=== PATIENT | male | born 1940 | race Caucasian/White ===

== ENCOUNTER → 2016-08-26 | Outpatient (CLI) | payer OTHER, MEDICARE ==
[~2016-08-26] MED LIST: ASPI1TAB PO; B12 INJECTION INJ; CYAN1000VL IM; EC-N500T OR; NAPR375T2 PO; OMAC1CA PO; OMEP20CA3 PO; PRAV40TA PO; PRAV40TA2 PO; SIMV40TA2 OR
[2016-08-26 17:40] LABS: ALBUMIN 3.8 GM/DL (3.2-5.2); ALBUMIN/GLOBULIN RATIO 1.27 (1.00-1.93); ALKALINE PHOSPHATASE 95 U/L (45-117); ALT/SGPT 21 U/L (12-78); ANION GAP 9 MEQ/L (8-16); AST/SGOT 19 U/L (15-37); BILIRUBIN,TOTAL 0.5 MG/DL (0.2-1.0); BLOOD UREA NITROGEN 12 MG/DL (7-18); CALCIUM LEVEL 8.6 MG/DL (8.8-10.2); CARBON DIOXIDE LEVEL 26 MEQ/L (21-32); CHLORIDE LEVEL 107 MEQ/L (98-107); CREATININE FOR GFR 1.18 MG/DL (0.70-1.30); FERRITIN 51 NG/ML (26-388); GLOMERULAR FILTRATION RATE > 60.0 (>42); GLUCOSE, FASTING 117 MG/DL (83-110); PERCENT SATURATION 26.2 % (19.7-37.4); POTASSIUM SERUM 4.7 MEQ/L (3.5-5.1); SODIUM LEVEL 142 MEQ/L (136-145); TOTAL IRON BINDING CAPACITY 385 UG/DL (250-450); TOTAL PROTEIN 6.8 GM/DL (6.4-8.2)
[2016-08-26 17:43] LABS: VITAMIN B12 LEVEL 1132 PG/ML (247-911)
[2016-08-26 18:03] LABS: MEAN CORPUSCULAR HEMOGLOBIN 33.7 pg (27.0-33.0); MEAN CORPUSCULAR HGB CONC 33.4 g/dl (32.0-36.5); MEAN CORPUSCULAR VOLUME 100.9 fl (80.0-96.0); WHITE BLOOD COUNT 7.1 K/mm3 (4.0-10.0)
[2016-08-28 14:51] LABS: FOLATE > 24.0 NG/ML (>5.4)
== END ==
LOC: M WUC 13:36
PROVIDERS: ATTEND Internal Medicine
DX: E78.00 Pure hypercholesterolemia, unspecified (principal); D64.9 Anemia, unspecified

== ENCOUNTER → 2016-09-29 | Outpatient (CLI) | payer OTHER, MEDICARE | LOC: M WUC 08:30 | PROVIDERS: ATTEND Nurse Practitioner Family | DX: I10 Essential (primary) hypertension (principal); I25.10 Atherosclerotic heart disease of native coronary artery without angina pectoris ==

== ENCOUNTER → 2016-11-10 | Outpatient (CLI) | payer OTHER | LOC: M WUC 08:13 | PROVIDERS: ATTEND Nurse Practitioner Family | DX: E78.5 Hyperlipidemia, unspecified (principal); I10 Essential (primary) hypertension ==

== ENCOUNTER → 2016-12-02 | Outpatient (CLI) | payer OTHER ==
--- NOTE | 2016-12-02 15:27 | REP ---
LUMBAR SPINE, FIVE VIEWS: HISTORY: Back pain. There is no acute fracture or subluxation. There is an old fracture of the L4 vertebral body with minimal height loss. The intervertebral discs are decreased in height consistent with disc degeneration. Osteophytes are present throughout the lumbar spine. There is narrowing of the L4-5 and L5-S1 facet joints. IMPRESSION: Degenerative change as described above. Signed by Gonzalo Macedo MD 12/02/2016 03:30 P
== END ==
LOC: M WUC 14:11
PROVIDERS: ATTEND Nurse Practitioner Family
DX: M54.5 Low back pain (principal); M51.86 Other intervertebral disc disorders, lumbar region; M25.78 Osteophyte, vertebrae

== ENCOUNTER → 2017-03-09 | Outpatient (CLI) | payer OTHER ==
[~2017-03-09] MED LIST changes: +NAPR-855 PO; -NAPR375T2 PO
== END ==
LOC: M WUC 08:36
PROVIDERS: ATTEND Nurse Practitioner Family
DX: E78.5 Hyperlipidemia, unspecified (principal)

== ENCOUNTER → 2017-03-24 | Outpatient (REF) | payer OTHER | LOC: M LAB REF 17:42 | PROVIDERS: ATTEND Surgery | DX: C44.319 Basal cell carcinoma of skin of other parts of face (principal) ==

== ENCOUNTER → 2017-07-27 | Outpatient (CLI) | payer OTHER ==
[2017-07-27 12:50] LABS: BASO # 0.1 10^3/uL (0.0-0.2); BASO % 1.1 % (0.0-1.0); EOS # 0.2 10^3/uL (0.0-0.50); EOS % 3.1 % (0.0-3.0); HEMATOCRIT 42.2 % (42.0-52.0); HEMOGLOBIN 13.7 g/dl (14.0-18.0); IMMATURE GRANULOCYTE % 0.6 % (0-0); LYMPH # 1.6 10^3/uL (1.5-4.5); LYMPH % 24.9 % (24.0-44.0); MEAN CORPUSCULAR HEMOGLOBIN 31.2 pg (27.0-33.0); MEAN CORPUSCULAR HGB CONC 32.5 g/dl (32.0-36.5); MEAN CORPUSCULAR VOLUME 96.1 fl (80.0-96.0); MONO # 0.6 10^3/uL (0.0-0.8); NEUTROPHILS # 3.9 10^3/uL (1.8-7.7); NEUTROPHILS % 61.3 % (36.0-66.0); PLATELET COUNT, AUTOMATED 306 10^3/uL (150-450); RED BLOOD COUNT 4.39 10^6/uL (4.30-6.10); RED CELL DISTRIBUTION WIDTH 12.9 % (11.5-14.5); WHITE BLOOD COUNT 6.4 10^3/uL (4.0-10.0)
[2017-07-27 13:08] LABS: ESTIMATED AVERAGE GLUCOSE 120 MG/DL (60-110); HEMOGLOBIN A1c 5.8 %
[2017-07-27 13:14] LABS: ALBUMIN 3.8 GM/DL (3.2-5.2); ALBUMIN/GLOBULIN RATIO 1.12 (1.00-1.93); ALKALINE PHOSPHATASE 86 U/L (45-117); ALT/SGPT 18 U/L (12-78); ANION GAP 5 MEQ/L (8-16); AST/SGOT 17 U/L (7-37); BILIRUBIN,TOTAL 0.5 MG/DL (0.2-1.0); BLOOD UREA NITROGEN 17 MG/DL (7-18); CARBON DIOXIDE LEVEL 29 MEQ/L (21-32); CHLORIDE LEVEL 108 MEQ/L (98-107); CHOLESTEROL LEVEL 168 MG/DL (<200); CHOLESTEROL RISK RATIO 3.733 (<5); GLOMERULAR FILTRATION RATE > 60.0 (>42); GLUCOSE, FASTING 125 MG/DL (83-110); HDL CHOLESTEROL 45 MG/DL (>40); NON-HDL-C 123 MG/DL; POTASSIUM SERUM 4.4 MEQ/L (3.5-5.1); SODIUM LEVEL 142 MEQ/L (136-145); TOTAL PROTEIN 7.2 GM/DL (6.4-8.2); TRIGLYCERIDES LEVEL 235 MG/DL (<150)
[2017-07-27 14:17] LABS: TOTAL 25(OH) VITAMIN D 30.9 NG/ML (30.0-100.0)
== END ==
LOC: M WUC 08:30
DX: E78.00 Pure hypercholesterolemia, unspecified (principal); R73.01 Impaired fasting glucose
CPT/HCPCS: 84443

== ENCOUNTER → 2017-08-27 | Outpatient (REF) | payer OTHER | LOC: M LAB REF 13:43 | DX: C44.519 Basal cell carcinoma of skin of other part of trunk (principal) | CPT/HCPCS: 88305 ==

== ENCOUNTER → 2017-11-04 | Outpatient (CLI) | payer OTHER ==
[2017-11-04 12:14] LABS: BASO # 0.1 10^3/uL (0.0-0.2); BASO % 1.2 % (0.0-1.0); EOS # 0.2 10^3/uL (0.0-0.50); EOS % 3.8 % (0.0-3.0); HEMATOCRIT 37.1 % (42.0-52.0); HEMOGLOBIN 11.9 g/dl (13.5-17.5); IMMATURE GRANULOCYTE % 0.4 % (0-3.0); LYMPH # 1.4 10^3/uL (1.5-4.5); LYMPH % 26.1 % (24.0-44.0); MEAN CORPUSCULAR HGB CONC 32.1 g/dl (32.0-36.5); MEAN CORPUSCULAR VOLUME 93.5 fl (80.0-96.0); MONO # 0.5 10^3/uL (0.0-0.8); MONO % 10.4 % (0.0-5.0); NEUTROPHILS % 58.1 % (36.0-66.0); PLATELET COUNT, AUTOMATED 241 10^3/uL (150-450); RED BLOOD COUNT 3.97 10^6/uL (4.30-6.10); RED CELL DISTRIBUTION WIDTH 12.9 % (11.5-14.5); WHITE BLOOD COUNT 5.2 10^3/uL (4.0-10.0)
[2017-11-04 12:31] LABS: TOTAL 25(OH) VITAMIN D 36.9 NG/ML (30.0-100.0)
[2017-11-04 12:44] LABS: MALB URINE SIEMENS 7.4 MG/L; MAU/CREAT RATIO 4.5 MCG/MG (0.0-30.0)
[2017-11-04 12:58] LABS: ALBUMIN 3.6 GM/DL (3.2-5.2); ALBUMIN/GLOBULIN RATIO 1.09 (1.00-1.93); ALKALINE PHOSPHATASE 77 U/L (45-117); ALT/SGPT 19 U/L (12-78); ANION GAP 4 MEQ/L (8-16); AST/SGOT 17 U/L (7-37); BILIRUBIN,TOTAL 0.5 MG/DL (0.2-1.0); BLOOD UREA NITROGEN 20 MG/DL (7-18); CALCIUM LEVEL 8.8 MG/DL (8.8-10.2); CARBON DIOXIDE LEVEL 28 MEQ/L (21-32); CHLORIDE LEVEL 110 MEQ/L (98-107); CHOLESTEROL LEVEL 143 MG/DL (<200); CREATININE FOR GFR 1.27 MG/DL (0.70-1.30); FREE T4 1.01 NG/DL (0.76-1.46); GLOMERULAR FILTRATION RATE 58.9 (>42); GLUCOSE, FASTING 126 MG/DL (70-100); HDL CHOLESTEROL 44 MG/DL (>40); LDL CHOLESTEROL 70.6 MG/DL (<100); NON-HDL-C 99 MG/DL; POTASSIUM SERUM 4.8 MEQ/L (3.5-5.1); SODIUM LEVEL 142 MEQ/L (136-145); THYROID STIMULATING HORMONE 0.937 uIU/ML (0.358-3.740); TOTAL PROTEIN 6.9 GM/DL (6.4-8.2); TRIGLYCERIDES LEVEL 142 MG/DL (<150)
[2017-11-04 13:24] LABS: ESTIMATED AVERAGE GLUCOSE 117 MG/DL (60-110); HEMOGLOBIN A1c 5.7 %
== END ==
LOC: M WUC 08:29
DX: Z79.899 Other long term (current) drug therapy (principal)
CPT/HCPCS: 84443

== ENCOUNTER → 2018-06-07 | Outpatient (CLI) | payer OTHER ==
[2018-06-07 09:03] LABS: BASO # 0.1 10^3/uL (0.0-0.2); BASO % 1.5 % (0.0-1.0); EOS # 0.2 10^3/uL (0.0-0.50); EOS % 3.9 % (0.0-3.0); HEMATOCRIT 33.9 % (42.0-52.0); HEMOGLOBIN 10.2 g/dl (13.5-17.5); IMMATURE GRANULOCYTE % 0.4 % (0-3.0); LYMPH # 1.6 10^3/uL (1.5-4.5); LYMPH % 28.8 % (24.0-44.0); MEAN CORPUSCULAR HEMOGLOBIN 24.6 pg (27.0-33.0); MEAN CORPUSCULAR HGB CONC 30.1 g/dl (32.0-36.5); MEAN CORPUSCULAR VOLUME 81.7 fl (80.0-96.0); MONO # 0.7 10^3/uL (0.0-0.8); NEUTROPHILS # 2.9 10^3/uL (1.8-7.7); NEUTROPHILS % 53.4 % (36.0-66.0); PLATELET COUNT, AUTOMATED 270 10^3/uL (150-450); RED BLOOD COUNT 4.15 10^6/uL (4.30-6.10); RED CELL DISTRIBUTION WIDTH 16.4 % (11.5-14.5); WHITE BLOOD COUNT 5.4 10^3/uL (4.0-10.0)
[2018-06-07 10:02] LABS: ALBUMIN 3.6 GM/DL (3.2-5.2); ALBUMIN/GLOBULIN RATIO 1.16 (1.00-1.93); ALKALINE PHOSPHATASE 70 U/L (45-117); ALT/SGPT 22 U/L (12-78); ANION GAP 6 MEQ/L (8-16); AST/SGOT 18 U/L (7-37); BILIRUBIN,TOTAL 0.4 MG/DL (0.2-1.0); BLOOD UREA NITROGEN 22 MG/DL (7-18); CALCIUM LEVEL 8.7 MG/DL (8.8-10.2); CARBON DIOXIDE LEVEL 28 MEQ/L (21-32); CHLORIDE LEVEL 109 MEQ/L (98-107); CHOLESTEROL LEVEL 150 MG/DL (<200); CHOLESTEROL RISK RATIO 3.571 (<5); CREATININE FOR GFR 1.17 MG/DL (0.70-1.30); GLOMERULAR FILTRATION RATE > 60.0 (>42); GLUCOSE, FASTING 134 MG/DL (70-100); HDL CHOLESTEROL 42 MG/DL (>40); LDL CHOLESTEROL 82 MG/DL (<100); NON-HDL-C 108 MG/DL; POTASSIUM SERUM 4.5 MEQ/L (3.5-5.1); SODIUM LEVEL 143 MEQ/L (136-145); TOTAL PROTEIN 6.7 GM/DL (6.4-8.2); TRIGLYCERIDES LEVEL 131 MG/DL (<150)
[2018-06-07 10:10] LABS: TOTAL 25(OH) VITAMIN D 47.1 NG/ML (30.0-100.0)
[2018-06-07 10:35] LABS: ESTIMATED AVERAGE GLUCOSE 128 MG/DL (60-110); HEMOGLOBIN A1c 6.1 %
== END ==
LOC: M WUC 08:14
DX: E78.00 Pure hypercholesterolemia, unspecified (principal); E55.9 Vitamin D deficiency, unspecified; I10 Essential (primary) hypertension; M51.36 Other intervertebral disc degeneration, lumbar region; Z79.899 Other long term (current) drug therapy
CPT/HCPCS: 80053

== ENCOUNTER 2018-08-25 06:48 | Day surgery (SDC) | payer MEDICARE ==
[~2018-08-25] VITALS: Ht 170.2 cm; Wt 95.3 kg
[~2018-08-25 06:48] MED LIST changes: +CALC1TAB63 PO; +CENT1TAB2 PO; +FENO48TA2 PO; +LEVOTAB10 PO; +METO1TAB32 PO; +OCUVTAB4 PO; +VITA100067 PO
[2018-08-25] MEDS ORDERED: NS 1,000 ML IV SCH (07:00)
[2018-08-25] MEDS ORDERED: LIDOCAINE 2% INJ 100 MG/5 ML SDV (FOR ANES.) As Ordered ONE (07:10)
[2018-08-25] MEDS ORDERED: PROPOFOL 200 MG/20 ML VIAL As Ordered ONE ×3 (07:11→08:15)
--- NOTE | 2018-08-25 09:00 | ROOR ---
Patient Name: Mckay Vaca Procedure Date: 08/25/2018 7:30 AM Date of : 1940 Age: 77 Room: [facility] Gender: Male Note Status: Finalized Procedure: Colonoscopy Indications: Screening for colorectal malignant neoplasm Providers: Song Simeon MD Referring MD: DAMIR Pugh Requesting Provider: Medicines: Monitored Anesthesia Care Complications: No immediate complications. Procedure: Pre-Anesthesia Assessment: - Prior to the procedure, a History and Physical was performed, and patient medications and allergies were reviewed. The patient is competent. The risks and benefits of the procedure and the sedation options and risks were discussed with the patient. All questions were answered and informed consent was obtained. Patient identification and proposed procedure were verified by the physician, the nurse and the anesthesiologist in the endoscopy suite. Mental Status Examination: alert and oriented. Airway Examination: normal oropharyngeal airway and neck mobility. Respiratory Examination: clear to auscultation. CV Examination: normal. Prophylactic Antibiotics: The patient does not require prophylactic antibiotics. Prior Anticoagulants: The patient has taken aspirin, last dose was day of procedure. ASA Grade Assessment: III - A patient with severe systemic disease. After reviewing the risks and benefits, the patient was deemed in satisfactory condition to undergo the procedure. The anesthesia plan was to use monitored anesthesia care (MAC). Immediately prior to administration of medications, the patient was re-assessed for adequacy to receive sedatives. The heart rate, respiratory rate, oxygen saturations, blood pressure, adequacy of pulmonary ventilation, and response to care were monitored throughout the procedure. The physical status of the patient was re-assessed after the procedure. The Colonoscope was introduced through the anus and advanced to the cecum, identified by appendiceal orifice and ileocecal valve. The colonoscopy was technically difficult and complex due to the patient's position intolerance. Successful completion of the procedure was aided by increasing the dose of sedation medication. The total duration of the procedure was 50 minutes. Findings: The perianal and digital rectal examinations were normal. A 10 mm polyp was found in the cecum. The polyp was sessile. The polyp was removed with a hot snare. Resection and retrieval were complete. Estimated blood loss: none. A 20 to 30 mm polyp was found in the ascending colon. The polyp was multi-lobulated and sessile. The polyp was removed with a hot snare. Polyp resection was incomplete. The resected tissue was retrieved. Estimated blood loss was minimal. Two semi-pedunculated polyps were found in the descending colon and at 60 cm proximal to the anus. The polyps were 10 mm in size. These polyps were removed with a hot snare. Resection and retrieval were complete. Estimated blood loss: none. Two pedunculated polyps were found at 50 cm proximal to the anus. The polyps were 10 mm in size. These polyps were removed with a hot snare. Resection and retrieval were complete. A 20 mm polyp was found in the rectum. The polyp was pedunculated. The polyp was removed with a hot snare. Resection and retrieval were complete. Estimated blood loss was minimal. A 10 mm polyp was found in the sigmoid colon. The polyp was semi-pedunculated. The polyp was removed with a hot snare. Resection and retrieval were complete. Estimated blood loss was minimal. Multiple medium-mouthed diverticula were found in the sigmoid colon. No additional abnormalities were found on retroflexion. Impression: - One 10 mm polyp in the cecum, removed with a hot snare. Resected and retrieved. - One 20 to 30 mm polyp in the ascending colon, removed with a hot snare. Incomplete resection. Resected tissue retrieved. - Two 10 mm polyps in the descending colon and at 60 cm proximal to the anus, removed with a hot snare. Resected and retrieved. - Two 10 mm polyps at 50 cm proximal to the anus, removed with a hot snare. Resected and retrieved. - One 20 mm polyp in the rectum, removed with a hot snare. Resected and retrieved. - One 10 mm polyp in the sigmoid colon, removed with a hot snare. Resected and retrieved. - Diverticulosis in the sigmoid colon. Recommendation: - Discharge patient to home (ambulatory). - Continue present medications. Song Simeon MD Song Simeon MD 08/25/2018 9:00:32 AM This report has been signed electronically. Number of Addenda: 0 Note Initiated On: 08/25/2018 7:30 AM Estimated Blood Loss: Estimated blood loss was minimal.
[2018-08-25 09:26] VITALS: BP 143/90
== END 2018-08-25 09:26 | disposition home or self-care (01) ==
LOC: M OPP 06:48
PROVIDERS: ATTEND Surgery
DX: R19.5 Other fecal abnormalities (principal); D12.0 Benign neoplasm of cecum; D12.2 Benign neoplasm of ascending colon; K62.1 Rectal polyp; D12.5 Benign neoplasm of sigmoid colon; D12.4 Benign neoplasm of descending colon; K57.30 Diverticulosis of large intestine without perforation or abscess without bleeding; F17.210 Nicotine dependence, cigarettes, uncomplicated; Z80.0 Family history of malignant neoplasm of digestive organs; Z79.82 Long term (current) use of aspirin; Z79.899 Other long term (current) drug therapy; Z86.73 Personal history of transient ischemic attack (TIA), and cerebral infarction without residual deficits

== ENCOUNTER 2018-08-27 05:57 | Observation (INO) | payer MEDICARE ==
[~2018-08-27] VITALS: Ht 170.2 cm; Wt 97.7 kg
[2018-08-27] MEDS ORDERED: NS 1,000 ML IV ONE (06:30)
[2018-08-27 06:50] LABS: BASO # 0.1 10^3/uL (0.0-0.2); BASO % 1.1 % (0.0-1.0); EOS # 0.2 10^3/uL (0.0-0.50); EOS % 3.7 % (0.0-3.0); HEMATOCRIT 26.2 % (42.0-52.0); HEMOGLOBIN 7.8 g/dl (13.5-17.5); LYMPH # 1.8 10^3/uL (1.5-4.5); LYMPH % 31.1 % (24.0-44.0); MEAN CORPUSCULAR HEMOGLOBIN 22.9 pg (27.0-33.0); MEAN CORPUSCULAR HGB CONC 29.8 g/dl (32.0-36.5); MEAN CORPUSCULAR VOLUME 77.1 fl (80.0-96.0); MONO # 0.5 10^3/uL (0.0-0.8); MONO % 8.2 % (0.0-5.0); NEUTROPHILS # 3.1 10^3/uL (1.8-7.7); NEUTROPHILS % 55.4 % (36.0-66.0); PLATELET COUNT, AUTOMATED 238 10^3/uL (150-450); WHITE BLOOD COUNT 5.6 10^3/uL (4.0-10.0)
[2018-08-27 07:02] LABS: INR 1.04; PROTHROMBIN TIME 13.7 SECONDS (12.1-14.4)
[2018-08-27 07:03] LABS: PARTIAL THROMBOPLASTIN TIME 26.6 SECONDS (25.4-37.6)
[2018-08-27 07:17] LABS: ALBUMIN 3.1 GM/DL (3.2-5.2); ALT/SGPT 18 U/L (12-78); BILIRUBIN,DIRECT < 0.1 MG/DL (0.0-0.2); BILIRUBIN,TOTAL 0.2 MG/DL (0.2-1.0); BLOOD UREA NITROGEN 11 MG/DL (7-18); CARBON DIOXIDE LEVEL 22 MEQ/L (21-32); CHLORIDE LEVEL 108 MEQ/L (98-107); CREATININE FOR GFR 1.12 MG/DL (0.70-1.30); GLOMERULAR FILTRATION RATE > 60.0 (>42); GLUCOSE, FASTING 158 MG/DL (70-100); LIPASE 157 U/L (73-393); POTASSIUM SERUM 3.8 MEQ/L (3.5-5.1); SODIUM LEVEL 139 MEQ/L (136-145)
[2018-08-27] MEDS ORDERED: ASPI1TAB PO (08:02)
--- NOTE | 2018-08-27 09:47 | HPEPDOC ---
General Surgery H&P Date of Admission Aug 27, 2018 Attending Physician: KATALINA COON MD History and Physical CHIEF COMPLAINT: Rectal bleeding HISTORY OF PRESENT ILLNESS: Patient underwent colonoscopy by me on 08/25/2018 for colorectal cancer screening. He turned out to have multiple large polyps that I removed. Patient is on aspirin and apparently he takes 81 mg of aspirin twice a day. Last intake was last night. He was doing well after the procedure. He drank about 6 or 7 cans of beer last night. He denies any associated abdominal pain. Early this morning roughly about 5 AM patient had an urge to go the bathroom and had passed bright red blood and clots. He also felt mildly lightheaded. He then was brought to the emergency room. In the emergency room he was noted hemodynamically stable. He received a bolus of 1 L of normal saline. He was noted to have dropped his hemoglobin to 7.8. I was then contacted by emergency room to resume care on the patient. ALLERGIES: Please see below. HOME MEDICATIONS: Please see below. PAST MEDICAL HISTORY: 1. Arthritis 2. Hypercholesterolemia 3. History of peptic ulcer disease 4. Coronary artery disease PAST SURGICAL HISTORY: 1. Cataract surgery. 2. History of repair of bleeding peptic ulcer 3. Cholecystectomy PERSONAL/SOCIAL HISTORY: Patient is 1 pack per day smoker for more than 50 years. Occasionally consumes alcohol.. REVIEW OF SYSTEMS: GENERAL: Denies chills, fatigue, fever, weight gain and weight loss. HEENT: Denies blurred vision and double vision. Denies ear symptoms. Denies hoarseness. NECK: Denies any neck pain. CARDIOVASCULAR: Denies chest pain and palpitations. MUSCULOSKELETAL: Reports chronic back pain. SKIN: Denies rash. NEUROLOGIC: [place] mildly lightheaded this morning. PSYCHIATRIC: Denies anxiety and depression. ENDOCRINE: Denies thyroid disease. HEMATOLOGY/ONCOLOGY: Currently admitted for lower GI bleeding. Patient is taking 81 mg of aspirin twice daily. HEART: Denies any chest pains, palpitations, paroxysmal dyspnea, orthopnea. PULMONARY: Denies chronic cough, dyspnea and wheezing. GASTROINTESTINAL: Recent colonoscopy with multiple large polyps removed. Pathology pending from that. This morning has lower GI bleeding.. GENITOURINARY: Denies dysuria, frequency, hematuria and nocturia. ENDOCRINE: Denies polydipsia, polyphagia, polyuria, heat or cold intolerance. INFECTIOUS: Denies any recent upper respiratory tract infection, UTI, need for use of antibiotics. NUTRITION: Reports good appetite. PHYSICAL EXAMINATION: VITAL SIGNS: Please see below. GENERAL APPEARANCE: Comfortable, in no acute distress. Awake, alert, oriented. HEENT: Normocephalic, atraumatic. mild pale palpebral conjunctivae. Anicteric sclerae. Lips moist. CHEST: No chest wall abnormalities. Normal respiratory motion/effort. NECK: Supple. No thyromegaly. No lymphadenopathies. LUNGS: Lung sounds are clear to auscultation bilaterally. No wheezing appreciated. HEART: No chest wall abnormalities. Heart rate and rhythm are regular with no murmurs. ABDOMEN: Abdomen is obese, soft, slightly rounded. No hepatosplenomegaly. No umbilical or groin herniations, nondistended. No noticeable rebound or guarding. No grimacing with palpation. No rebound tenderness. No masses appreciated. SKIN: Warm, moist. EXTREMITIES: Extremities have no deformities. No edema identified. NEUROLOGICAL: Awake, alert, oriented. ANCILLARIES: . LABORATORY DATA: Please see below. MICROBIOLOGY: Please see below. IMAGING: none IMPRESSION AND PLAN: Lower gastrointestinal bleed most likely secondary from recent colonoscopy with polypectomies Right now patient is hemodynamically stable though he did dropped his hemoglobin to 7.8. He does not have any significant tachycardia nor has any documented postero-hypotension. I will keep in the hospital for observation. I'll hold off on transfusion. He passed blood roughly about 5 AM and has not had any recurrent bleeding since then. I'll repeat the hemoglobin and hematocrit at 12 noon to determine if he still bleeding or help risk he is bleeding. I discussed with him possibility of blood transfusion as well as possibility of needing for a repeat colonoscopy. Vital Signs Vital Signs Date Time Temp Pulse Resp B/P (MAP) Pulse Ox O2 Delivery O2 Flow Rate FiO2 08/27/18 07:00 76 130/58 (82) 96 Room Air 08/27/18 05:57 96.9 18 Laboratory Data Labs 24H Laboratory Tests 2 08/27/18 06:31: Immature Granulocyte % (Auto) 0.5, White Blood Count 5.6, Red Blood Count 3.40L, Hemoglobin 7.8L, Hematocrit 26.2L, Mean Corpuscular Volume 77.1L, Mean Corpuscular Hemoglobin 22.9L, Mean Corpuscular Hemoglobin Concent 29.8L, Red Cell Distribution Width 17.3H, Platelet Count 238, Neutrophils (%) (Auto) 55.4, Lymphocytes (%) (Auto) 31.1, Monocytes (%) (Auto) 8.2H, Eosinophils (%) (Auto) 3.7H, Basophils (%) (Auto) 1.1H, Neutrophils # (Auto) 3.1, Lymphocytes # (Auto) 1.8, Monocytes # (Auto) 0.5, Eosinophils # (Auto) 0.2, Basophils # (Auto) 0.1, Nucleated Red Blood Cells % (auto) 0.0, Prothrombin Time 13.7, Prothromb Time International Ratio 1.04, Activated Partial Thromboplast Time 26.6, Anion Gap 9, Glomerular Filtration Rate > 60.0, Calcium Level 8.0L, Aspartate Amino Transf (AST/SGOT) 22, Alanine Aminotransferase (ALT/SGPT) 18, Alkaline Phosphatase 77, Total Bilirubin 0.2, Direct Bilirubin < 0.1, Total Protein 6.0L, Albumin 3.1L, Albumin/Globulin Ratio 1.07, Lipase 157 CBC/BMP Laboratory Tests 08/27/18 06:31 Red Blood Count 3.40 L, Mean Corpuscular Volume 77.1 L, Mean Corpuscular Hemoglobin 22.9 L, Mean Corpuscular Hemoglobin Concent 29.8 L, Red Cell Distribution Width 17.3 H, Neutrophils (%) (Auto) 55.4, Lymphocytes (%) (Auto) 31.1, Monocytes (%) (Auto) 8.2 H, Eosinophils (%) (Auto) 3.7 H, Basophils (%) (Auto) 1.1 H, Neutrophils # (Auto) 3.1, Lymphocytes # (Auto) 1.8, Monocytes # (Auto) 0.5, Eosinophils # (Auto) 0.2, Basophils # (Auto) 0.1 Home Medications Scheduled (Calcium 600 with Vitamin 600-400 mg-Unit) 1 Tab Tab, 1 TAB PO DAILY, (Reported) Aspirin (Aspirin 81) 81 Mg Tab, 81 MG PO DAILY Fenofibrate (Fenofibrate) 48 Mg Tab, 48 MG PO QHS, (Reported) Levocetirizine Hydrochloride (Levocetirizine Dihydrochl) 5 Mg Tab, 5 MG PO QHS, (Reported) Metoprolol Succinate (Metoprolol Succinate ER) 25 Mg Tab, 25 MG PO QHS, (Reported) Multivitamin Areds (Preservision Areds) 1 Tab Tab, 1 TAB PO DAILY, (Reported) Multivitamins (Centrum Ultra Mens) 1 Tab Tab, 1 TAB PO QHS, (Reported) Omeprazole (Omeprazole) 20 Mg Cap, 20 MG PO QHS, (Reported) Pravastatin Sod (Pravastatin Sodium) 40 Mg Tab, 40 MG PO QHS, (Reported) Vitamin D (Vitamin D) 1,000 Unit Cap, 1,000 UNIT PO DAILY, (Reported) Allergies Coded Allergies: No Known Drug Allergy (Verified Allergy, Unknown, 10/12/12) KATALINA COON MD Aug 27, 2018 09:47
[2018-08-27] MEDS: LR 1,000 ML IV SCH ×2 (11:02→23:10)
[2018-08-27 11:30] VITALS: BP 161/77
[2018-08-27 12:31] LABS: HEMATOCRIT 23.1 % (42.0-52.0)
[2018-08-27 12:37] LABS: HEMOGLOBIN 6.9 g/dl (13.5-17.5)
[2018-08-27 14:00] VITALS: BP 136/66
[2018-08-27 17:56] LABS: HEMATOCRIT 23.1 % (42.0-52.0)
[2018-08-27] MEDS: OMEPRAZOLE 20 MG CAP PO SCH (20:21)
[2018-08-27] MEDS: METOPROLOL SUCC *XL* 25MG TAB (TopROL *XL*) PO SCH (20:21)
[2018-08-27] MEDS: PRAVASTATIN 20 MG TAB PO SCH (20:22)
[2018-08-27 22:00] VITALS: BP 131/68
[2018-08-28 06:00] VITALS: BP 131/64
[2018-08-28 06:07] LABS: BASO # 0.1 10^3/uL (0.0-0.2); BASO % 1.2 % (0.0-1.0); EOS # 0.2 10^3/uL (0.0-0.50); EOS % 3.6 % (0.0-3.0); HEMATOCRIT 26.4 % (42.0-52.0); HEMOGLOBIN 8.2 g/dl (13.5-17.5); LYMPH # 1.7 10^3/uL (1.5-4.5); LYMPH % 25.4 % (24.0-44.0); MEAN CORPUSCULAR HEMOGLOBIN 23.9 pg (27.0-33.0); MEAN CORPUSCULAR HGB CONC 31.1 g/dl (32.0-36.5); MONO # 0.7 10^3/uL (0.0-0.8); MONO % 10.4 % (0.0-5.0); NEUTROPHILS # 3.9 10^3/uL (1.8-7.7); NEUTROPHILS % 59.2 % (36.0-66.0); PLATELET COUNT, AUTOMATED 210 10^3/uL (150-450); RED BLOOD COUNT 3.43 10^6/uL (4.30-6.10); WHITE BLOOD COUNT 6.6 10^3/uL (4.0-10.0)
[2018-08-28 06:35] LABS: BLOOD UREA NITROGEN 12 MG/DL (7-18); CALCIUM LEVEL 7.7 MG/DL (8.8-10.2); CARBON DIOXIDE LEVEL 27 MEQ/L (21-32); CHLORIDE LEVEL 111 MEQ/L (98-107); CREATININE FOR GFR 0.98 MG/DL (0.70-1.30); GLOMERULAR FILTRATION RATE > 60.0 (>42); GLUCOSE, FASTING 109 MG/DL (70-100); POTASSIUM SERUM 3.9 MEQ/L (3.5-5.1); SODIUM LEVEL 142 MEQ/L (136-145)
[2018-08-28 14:00] VITALS: BP 144/69
--- NOTE | 2018-08-28 14:35 | IPN ---
DATE: 08/28/2018 HISTORY: Patient is a 77-year-old man who on August 25 underwent a colonoscopy by Dr. Simeon. Multiple polyps were resected, some completely, some incompletely. On August 27 in the morning he noted passage of a large amount of blood and clots. He came to the emergency department, where he was found to have had a drop in his hematocrit.. He was admitted, and serial hematocrits were checked. He had a slight further drop to a hematocrit of 23% later in the day and received 2 units of packed red blood cells. He reports he has not had any brisk bleeding as he did yesterday, but still has some blood tinge to his stool. He denies any abdominal pain. He was kept nothing by mouth overnight. VITAL SIGNS: The patient has been afebrile since admission. His pulse is in the 70s and 80s. Blood pressure is good, and his room air oxygen saturations are normal. Intake and output show that yesterday he had 1200 in. There is one void recorded and one bowel movement recorded. PHYSICAL EXAMINATION: The patient is a very pleasant man, lying quietly on the hospital bed. He is alert, oriented, and cooperative. Skin is warm and dry. Heart exam shows a regular rhythm. The abdomen is obese but soft and without any tenderness. LABORATORY STUDIES: This morning, his CBC shows a white count of 70, hemoglobin of 8, hematocrit of 26, and a platelet count of 210,000. Differential count shows 59% neutrophils, 25% lymphocytes, 10% monocytes, and 4% eosinophils. A chemistry profile showed normal electrolytes with the exception of chloride minimally elevated at 111. BUN is 12, creatinine is 0.98, and a glucose is 109. IMPRESSION: The patient does not seem to be having any further acute bleeding. I did examine personally the small bowel movement he had this morning, and that showed some small amount of stool, but clearly there is some red coloration. His abdomen is soft and nontender. His hematocrit is improved after 2 units of packed cells but certainly not back to normal. His most recent CBC in the computer was in May, when he had a hematocrit of 34%. PLAN: The patient will be started on some clear liquids. He will have a CBC later today and then daily. If his hematocrit drops further, then he will be given additional transfusion, and we should plan on a colonoscopy to look for a bleeding source. He has had multiple polyps resected recently, so it may be difficult to identify the particular source for his bleed. I will slow his intravenous (IV) rate down slightly and consider saline locking this if he takes liquids well.
[2018-08-28 17:58] LABS: HEMATOCRIT 30.1 % (42.0-52.0); HEMOGLOBIN 9.2 g/dl (13.5-17.5); MEAN CORPUSCULAR HEMOGLOBIN 24.3 pg (27.0-33.0); MEAN CORPUSCULAR HGB CONC 30.6 g/dl (32.0-36.5); MEAN CORPUSCULAR VOLUME 79.6 fl (80.0-96.0); PLATELET COUNT, AUTOMATED 225 10^3/uL (150-450); RED BLOOD COUNT 3.78 10^6/uL (4.30-6.10); WHITE BLOOD COUNT 6.5 10^3/uL (4.0-10.0)
[2018-08-28 18:00] VITALS: BP 183/87
[2018-08-28] MEDS: LR 1,000 ML IV SCH (18:05)
[2018-08-28] MEDS: OMEPRAZOLE 20 MG CAP PO SCH (21:28)
[2018-08-28] MEDS: METOPROLOL SUCC *XL* 25MG TAB (TopROL *XL*) PO SCH (21:29)
[2018-08-28] MEDS: PRAVASTATIN 20 MG TAB PO SCH (21:29)
[2018-08-28 22:00] VITALS: BP 153/73
[2018-08-29 02:00] VITALS: BP 138/74
[2018-08-29 06:00] VITALS: BP 145/74
[2018-08-29 07:24] LABS: HEMATOCRIT 29.5 % (42.0-52.0); HEMOGLOBIN 8.9 g/dl (13.5-17.5); MEAN CORPUSCULAR HEMOGLOBIN 23.9 pg (27.0-33.0); MEAN CORPUSCULAR HGB CONC 30.2 g/dl (32.0-36.5); MEAN CORPUSCULAR VOLUME 79.3 fl (80.0-96.0); PLATELET COUNT, AUTOMATED 225 10^3/uL (150-450); RED BLOOD COUNT 3.72 10^6/uL (4.30-6.10)
[2018-08-29 14:00] VITALS: BP 149/72
[2018-08-29 20:58] VITALS: BP 161/85
[2018-08-29] MEDS: PRAVASTATIN 20 MG TAB PO SCH (20:58)
[2018-08-29] MEDS: OMEPRAZOLE 20 MG CAP PO SCH (20:58)
[2018-08-29] MEDS: METOPROLOL SUCC *XL* 25MG TAB (TopROL *XL*) PO SCH (20:58)
[2018-08-29 22:00] VITALS: BP 140/83
[2018-08-30 06:00] VITALS: BP 134/70
[2018-08-30 06:43] LABS: HEMATOCRIT 29.8 % (42.0-52.0); HEMOGLOBIN 9.2 g/dl (13.5-17.5); MEAN CORPUSCULAR HEMOGLOBIN 24.7 pg (27.0-33.0); MEAN CORPUSCULAR HGB CONC 30.9 g/dl (32.0-36.5); MEAN CORPUSCULAR VOLUME 79.9 fl (80.0-96.0); PLATELET COUNT, AUTOMATED 212 10^3/uL (150-450); RED BLOOD COUNT 3.73 10^6/uL (4.30-6.10)
[2018-08-30] MEDS ORDERED: ASPI1TAB PO (10:29)
--- NOTE | 2018-08-30 10:35 | DS.PDOC ---
Discharge Summary General Date of Admission Aug 27, 2018 at 09:19 Date of Discharge 08/30/18 Attending Physician: KATALINA SIMEON MD Discharge Summary PROCEDURES PERFORMED DURING STAY: None. ADMITTING DIAGNOSES: 1. Lower GI bleed likely secondary from recent colonoscopy with polypectomies DISCHARGE DIAGNOSES: 1. Lower GI bleed likely due to recent colonoscopy with polypectomies s/p transfusion 2 units packed RBCs COMPLICATIONS/CHIEF COMPLAINT: Gastrointestinal Bleed. HISTORY OF PRESENT ILLNESS: Patient is a 77 yo male who recently underwent colonoscopy with several polypectomies on 08/25/18 presented to [facility] ER on 08/27/18 due to passage of large amount of bright red blood and clots and mildly lightheadedness that started on 08/27/18 morning. Patient had colonoscopy for colorectal cancer screening, and it was noted that he was doing well after the colonoscopy. Patient drank about 6-7 beers 08/26 night. He reports that he is on Aspirin 81mg BID. Patient denied any abdominal pain, fever, chills, chest pain, palpitation, SOB, jaundice, decreased appetite, or dysphagia. He reported no family history of colon cancer. HOSPITAL COURSE: Patient was noted to be hemodynamically stable, and received 1L of NS in ER. It was noted that his Hg dropped to 7.8 which is lower than baseline. Patient's home medication Aspirin was held during his hospital stay. Patient's repeat Hg at noon time on 08/25/18 dropped to 6.9. Blood product consent was received and patient received 2 units of PRBC. Patient's Hg had stabilized after transfusion around 8.9 to 9., and lightheadedness resolved after transfusion. Patient denied brisk GI bleeding the next day, but there was still some blood tinge in stool. Patient was then switched from NPO to clear liquid diet, and IV fluid rate was titrated down. Pt was advanced to regular diet yesterday. This morning patient stated that he is feeling good, still has watery diarrhea without any hematochezia or melena. Denies fever, chills, na usea, vomiting, abdominal pain, urination symptoms, or hematuria. Stool was observed this morning inside the toilet bowl with no obvious hematochezia or melena noted. Patient's H&H stablized and he is able to tolerate PO regular diet well and walk without assist. DISCHARGE MEDICATIONS: Please see below. ALLERGIES: Please see below. PHYSICAL EXAMINATION ON DISCHARGE: VITAL SIGNS: Please see below. GENERAL: Not in acute distress, alert, pleasant, and cooperativ HEENT: Head normocephalic, atraumatic, no scleral icterus, mucosa moist. NECK: supple CARDIOVASCULAR EXAMINATION: RRR, no murmur, normal S1 and S2 RESPIRATORY EXAMINATION: CTA b/l, no rales, wheezing, or rhonchi. Normal air entry. ABDOMINAL EXAMINATION: Soft, non-distended. No umbilical hernia noted. No rebound tenderness or guarding. No mass appreciated EXTREMITIES: Radial pulse equal b/l. No edema. No obvious deformity noted SKIN: Warm and moist. No jaundice noted NEUROLOGICAL EXAMINATION: A&OX3, memory and cognitive function grossly intact PSYCHIATRIC EXAMINATION: appropriate to situation LABORATORY DATA: Please see below. IMAGING: None PROGNOSIS: Good ACTIVITY: As tolerated. DIET: Regular diet DISCHARGE PLAN AND INSTRUCTIONS: Patient will follow up with PCP in 7 days. Patient will follow up with Dr. Simeon in January 2019 for incomplete polypectomies. ITEMS TO FOLLOWUP ON ON OUTPATIENT: 1. Lower GI bleed 2. Colon polyps DISCHARGE CONDITION: Stable. TIME SPENT ON DISCHARGE: Greater than 15 minutes. Vital Signs/I&Os Vital Signs Date Time Temp Pulse Resp B/P (MAP) Pulse Ox O2 Delivery O2 Flow Rate FiO2 08/30/18 06:00 98.5 74 20 134/70 (91) 96 08/28/18 18:00 2.0 08/27/18 11:20 Room Air I&O- Last 24 Hours up to 6 AM0 08/30/18 06:00 Intake Total 2520 ml Output Total 0 ml Balance 2520 ml Laboratory Data Labs 24H Laboratory Tests 2 08/30/18 05:59: Nucleated Red Blood Cells % (auto) 0.0 CBC/BMP Laboratory Tests 08/30/18 05:59 Red Blood Count 3.73 L, Mean Corpuscular Volume 79.9 L, Mean Corpuscular Hemoglobin 24.7 L, Mean Corpuscular Hemoglobin Concent 30.9 L, Red Cell Distribution Width 17.6 H Discharge Medications Scheduled (Calcium 600 with Vitamin 600-400 mg-Unit) 1 Tab Tab, 1 TAB PO DAILY, (Reported) Aspirin (Aspirin 81) 81 Mg Tab, 81 MG PO DAILY Fenofibrate (Fenofibrate) 48 Mg Tab, 48 MG PO QHS, (Reported) Levocetirizine Hydrochloride (Levocetirizine Dihydrochl) 5 Mg Tab, 5 MG PO QHS, (Reported) Metoprolol Succinate (Metoprolol Succinate ER) 25 Mg Tab, 25 MG PO QHS, (Reported) Multivitamin Areds (Preservision Areds) 1 Tab Tab, 1 TAB PO DAILY, (Reported) Multivitamins (Centrum Ultra Mens) 1 Tab Tab, 1 TAB PO QHS, (Reported) Omeprazole (Omeprazole) 20 Mg Cap, 20 MG PO QHS, (Reported) Pravastatin Sod (Pravastatin Sodium) 40 Mg Tab, 40 MG PO QHS, (Reported) Vitamin D (Vitamin D) 1,000 Unit Cap, 1,000 UNIT PO DAILY, (Reported) Allergies Coded Allergies: No Known Drug Allergy (Verified Allergy, Unknown, 10/12/12) LIZBETH DAILEY DO Aug 30, 2018 10:35 KATALINA SIMEON MD Sep 02, 2018 05:27
--- NOTE | 2018-08-30 21:19 | IPN ---
DATE: 08/29/2018 HISTORY: The patient was admitted on 08/27/2018 for rectal bleeding following a colonoscopy with multiple polypectomies on 08/25/2018. He received two units of packed red blood cells. He had a small amount of blood-stained stool yesterday but reports that he has now had two bowel movements that were without any signs of blood. Vital signs: Show that he has been afebrile over the last 24 hours with a pulse in the 70s and good blood pressure. Intake and output shows that he had 2600 in yesterday and his urine output was not recorded. He has had bowel movements also that seem not to be recorded. PHYSICAL EXAMINATION: The patient is alert and cheerful. He denies any pain. He is eager to go home and also asking about food. He was on clear liquids only yesterday. Heart exam shows a regular rate and rhythm. He is obese, but he has active bowel sounds and the abdomen is soft and nontender. LABORATORY STUDIES: Today he had a CBC that showed a white count of 6, hemoglobin 9, hematocrit of 30 and a platelet count of 225,000. This is not significantly changed from yesterday evening. IMPRESSION: The patient is doing well with no signs of any active bleeding at this time. He has only had some clear liquids. PLAN: I discussed with the patient advancing his diet. I have recommended we keep him in the hospital one more day to monitor for any recurrence of bleeding. We will put him on a regular diet, and I would anticipate that he would be discharged tomorrow if he shows no signs of any further bleeding.
== END 2018-08-30 11:50 | disposition home or self-care (01) ==
LOC: M ED 05:57 → M ED INP 09:19 → M MS5PR 11:31
PROVIDERS: ADMIT Surgery; ATTEND Surgery
DX: K92.2 Gastrointestinal hemorrhage, unspecified (principal); K63.5 Polyp of colon; Z79.899 Other long term (current) drug therapy; E78.00 Pure hypercholesterolemia, unspecified; I10 Essential (primary) hypertension; Z86.73 Personal history of transient ischemic attack (TIA), and cerebral infarction without residual deficits; Z87.891 Personal history of nicotine dependence; Z79.82 Long term (current) use of aspirin; D51.9 Vitamin B12 deficiency anemia, unspecified
CPT/HCPCS: 36415; 36430; 80048; 80076; 83690; 85014; 85018; 85025; 85027; 85610; 85730; 86850; 86900; 86901; 86920; 96360; 96361; 99285; G0378; P9016

== ENCOUNTER → 2018-12-01 | Outpatient (CLI) | payer MEDICARE ==
[~2018-12-01] MED LIST changes: -ASPI1TAB PO; +ASPI81TA26 PO
[2018-12-01 09:28] LABS: BASO # 0.1 10^3/uL (0.0-0.2); BASO % 1.4 % (0.0-1.0); EOS # 0.3 10^3/uL (0.0-0.50); EOS % 5.3 % (0.0-3.0); HEMATOCRIT 31.3 % (42.0-52.0); HEMOGLOBIN 8.7 g/dl (13.5-17.5); LYMPH # 1.4 10^3/uL (1.5-4.5); LYMPH % 24.8 % (24.0-44.0); MEAN CORPUSCULAR HEMOGLOBIN 21.1 pg (27.0-33.0); MEAN CORPUSCULAR HGB CONC 27.8 g/dl (32.0-36.5); MEAN CORPUSCULAR VOLUME 75.8 fl (80.0-96.0); MONO # 0.7 10^3/uL (0.0-0.8); MONO % 12.7 % (0.0-5.0); NEUTROPHILS # 3.2 10^3/uL (1.8-7.7); NEUTROPHILS % 55.3 % (36.0-66.0); PLATELET COUNT, AUTOMATED 258 10^3/uL (150-450); RED BLOOD COUNT 4.13 10^6/uL (4.30-6.10); WHITE BLOOD COUNT 5.8 10^3/uL (4.0-10.0)
[2018-12-01 10:05] LABS: ALBUMIN 3.4 GM/DL (3.2-5.2); ALT/SGPT 18 U/L (12-78); BILIRUBIN,TOTAL 0.4 MG/DL (0.2-1.0); BLOOD UREA NITROGEN 13 MG/DL (7-18); CALCIUM LEVEL 8.7 MG/DL (8.8-10.2); CARBON DIOXIDE LEVEL 27 MEQ/L (21-32); CHLORIDE LEVEL 109 MEQ/L (98-107); CHOLESTEROL LEVEL 141 MG/DL (<200); CHOLESTEROL RISK RATIO 3.204 (<5); CREATININE FOR GFR 1.16 MG/DL (0.70-1.30); FREE T4 0.94 NG/DL (0.76-1.46); GLOMERULAR FILTRATION RATE > 60.0 (>42); GLUCOSE, FASTING 109 MG/DL (70-100); HDL CHOLESTEROL 44 MG/DL (>40); LDL CHOLESTEROL 73 MG/DL (<100); NON-HDL-C 97 MG/DL; POTASSIUM SERUM 4.6 MEQ/L (3.5-5.1); SODIUM LEVEL 143 MEQ/L (136-145); TOTAL PROTEIN 6.4 GM/DL (6.4-8.2); TRIGLYCERIDES LEVEL 119 MG/DL (<150)
== END ==
LOC: M WUC 08:24
PROVIDERS: ATTEND Physician Assistant Medical
DX: R53.83 Other fatigue (principal); I10 Essential (primary) hypertension; E78.2 Mixed hyperlipidemia

== ENCOUNTER 2019-03-23 07:26 | Day surgery (SDC) | payer MEDICARE ==
[~2019-03-23] VITALS: Ht 170.2 cm; Wt 93.9 kg
[~2019-03-23 07:26] MED LIST changes: +CHOL100029 PO; +NS 1,000 ML IV ONE; -OMEP20CA3 PO; +OMEP20CA4 PO
[2019-03-23] MEDS ORDERED: PROPOFOL 200 MG/20 ML VIAL As Ordered ONE ×3 (07:50→09:37)
--- NOTE | 2019-03-23 09:42 | ROOR ---
Patient Name: Mckay Vaca Procedure Date: 03/23/2019 8:31 AM Date of : 1940 Age: 78 Room: [facility] Gender: Male Note Status: Finalized Procedure: Colonoscopy Indications: High risk colon cancer surveillance: Personal history of colonic polyps Providers: Song Simeon MD Referring MD: Timothy Randall Requesting Provider: Medicines: Monitored Anesthesia Care Complications: No immediate complications. Procedure: Pre-Anesthesia Assessment: - Prior to the procedure, a History and Physical was performed, and patient medications and allergies were reviewed. The patient is competent. The risks and benefits of the procedure and the sedation options and risks were discussed with the patient. All questions were answered and informed consent was obtained. Patient identification and proposed procedure were verified by the physician, the nurse and the anesthesiologist in the endoscopy suite. Mental Status Examination: alert and oriented. Airway Examination: normal oropharyngeal airway and neck mobility. Respiratory Examination: clear to auscultation. CV Examination: normal. Prophylactic Antibiotics: The patient does not require prophylactic antibiotics. Prior Anticoagulants: The patient has taken aspirin, last dose was 1 day prior to procedure. ASA Grade Assessment: III - A patient with severe systemic disease. After reviewing the risks and benefits, the patient was deemed in satisfactory condition to undergo the procedure. The anesthesia plan was to use monitored anesthesia care (MAC). Immediately prior to administration of medications, the patient was re-assessed for adequacy to receive sedatives. The heart rate, respiratory rate, oxygen saturations, blood pressure, adequacy of pulmonary ventilation, and response to care were monitored throughout the procedure. The physical status of the patient was re-assessed after the procedure. The Colonoscope was introduced through the anus and advanced to the cecum, identified by appendiceal orifice and ileocecal valve. The colonoscopy was technically difficult and complex due to multiple polyps, diverticula, patients discomfort, abdominal breathing. Successful completion of the procedure was aided by increasing the dose of sedation medication and using manual pressure. The patient tolerated the procedure well. The quality of the bowel preparation was good. Findings: Hemorrhoids were found on perianal exam. I counted >20 polyps of varying sizes, some bigger than 2 cms, flat semi-sessile polyps were found in the transverse colon, ascending colon, cecum and from the cecum to the transverse colon. The polyps were 5 to 20 mm in size. The distal end of the colon at the transverse colon (>90 cms from anal verge) have been marked for possible right colectomy Five semi-pedunculated polyps were found in the sigmoid colon and descending colon. The polyps were 4 to 15 mm in size. These polyps were removed with a hot snare. Resection and retrieval were complete. Estimated blood loss was minimal. The retroflexed view of the distal rectum and anal verge was normal and showed no anal or rectal abnormalities. Impression: - Hemorrhoids found on perianal exam. - I counted >20 polyps of varying sizes, some bigger than 2 cms, flat 5 to 20 mm polyps in the transverse colon, in the ascending colon, in the cecum and from cecum to transverse colon. - Five 4 to 15 mm polyps in the sigmoid colon and in the descending colon, removed with a hot snare. Resected and retrieved. - The distal rectum and anal verge are normal on retroflexion view. Recommendation: - Discharge patient to home (ambulatory). - Return to my office in 2 weeks. - Recommend right colectomy for the multiple (>20 polyps) in the right colon, close surveillance for the rest of the colon, tiny polyps that were visualized was not removed as patient getting uncomfortable, having a lot of abdominal breathing, not able to hold gas anymore. Song Simeon MD Song Simeon MD 03/23/2019 9:41:40 AM Electronically signed by Song Simeon MD Number of Addenda: 0 Note Initiated On: 03/23/2019 8:31 AM Estimated Blood Loss: Estimated blood loss was minimal.
[2019-03-23 10:11] VITALS: BP 198/93
== END 2019-03-23 10:16 | disposition home or self-care (01) ==
LOC: M OPP 07:26
PROVIDERS: ATTEND Surgery
DX: Z09 Encounter for follow-up examination after completed treatment for conditions other than malignant neoplasm (principal); Z86.010 Personal history of colon polyps; K64.9 Unspecified hemorrhoids; D12.3 Benign neoplasm of transverse colon; D12.2 Benign neoplasm of ascending colon; D12.0 Benign neoplasm of cecum; D12.5 Benign neoplasm of sigmoid colon; D12.4 Benign neoplasm of descending colon; F17.210 Nicotine dependence, cigarettes, uncomplicated; Z79.82 Long term (current) use of aspirin; Z79.899 Other long term (current) drug therapy

== ENCOUNTER → 2019-04-15 | Outpatient (REF) | payer MEDICARE ==
[~2019-04-15] MED LIST changes: +ASPI81TA85 PO; +ATEN25TA PO; +CALC600T5 PO; -NS 1,000 ML IV ONE
== END ==
LOC: M LAB REF 16:14
PROVIDERS: ATTEND Nurse Practitioner
DX: L08.9 Local infection of the skin and subcutaneous tissue, unspecified (principal); C44.319 Basal cell carcinoma of skin of other parts of face; R20.8 Other disturbances of skin sensation

== ENCOUNTER 2019-04-29 07:03 | Inpatient (IN) | payer MEDICARE ==
[2019-04-29] VITALS (7 sets, daily range): BP systolic 136–139; BP diastolic 70–77
[~2019-04-29] VITALS: Ht 170.2 cm; Wt 92.5 kg
[~2019-04-29 07:03] MED LIST changes: +ALVIMOPAN 12 MG CAPSULE (ENTEREG) PO ONE; +FENO48TA13 PO; -FENO48TA2 PO; +HEPARIN SOD (PORCINE) 5000 UNITS/ML VIAL SQ ONE; +LIDOCAINE 1% MDV 20ML VIAL SQ PRN; +LR 1,000 ML IV ONE; +cefoTEtan DISODIUM 2 GM in D5W MINI-BAG PLUS 50 ML IV ONE; +metroNIDAZOLE 500 MG in IV 1 EA IV ONE
[2019-04-29] MEDS ORDERED: cefoTEtan INJ 2GM VIAL (S0074 PER 500MG) As Ordered ONE (08:00)
[2019-04-29] MEDS ORDERED: metroNIDAZOLE/NACL 500MG(5MG/ML)100 ML BAG (S0030) As Ordered ONE (08:00)
[2019-04-29] MEDS ORDERED: PROPOFOL 200 MG/20 ML VIAL As Ordered ONE (08:08)
[2019-04-29] MEDS ORDERED: ROCURONIUM BROMIDE 50 MG/5 ML VIAL As Ordered ONE ×3 (08:08→14:56)
[2019-04-29] MEDS ORDERED: LACRILUBE (AKWA TEARS) OPHTH OINT 3.5 GM As Ordered ONE (08:08)
[2019-04-29] MEDS ORDERED: LIDOCAINE 2% INJ 100 MG/5 ML SDV (FOR ANES.) As Ordered ONE (08:08)
[2019-04-29] MEDS ORDERED: fentaNYL 250 MCG/5 ML INJECTION (J3010) As Ordered ONE (08:09)
[2019-04-29] MEDS ORDERED: MIDAZOLAM INJ 2 MG/2 ML VIAL (J2250) As Ordered ONE (08:09)
[2019-04-29] MEDS ORDERED: ONDANSETRON 4MG/2ML VIAL (J2405) As Ordered ONE (08:09)
[2019-04-29] MEDS ORDERED: dexameTHASONE 4 MG/ML 1ML VIAL (J1100) As Ordered ONE (08:09)
[2019-04-29] MEDS ORDERED: ACETAMINOPHEN 1000MG 100ML IV BTL (OFIRMEV) (J0131 PER 10MG) As Ordered ONE (08:10)
[2019-04-29] MEDS ORDERED: LIDOCAINE 1% SDV INJ 30 ML VIAL As Ordered ONE (08:15)
[2019-04-29] MEDS ORDERED: BUPIVACAINE HCL 0.25% 30 ML VIAL As Ordered ONE (08:15)
[2019-04-29] MEDS ORDERED: PHENYLephrine HCL 500 MCG/5 ML (100MCG/ML) SYRINGE (J2370) As Ordered ONE (09:27)
[2019-04-29] MEDS: BUPIVACAINE HCL 0.25% 10 ML VIAL As Ordered ONE ×2 (09:32→16:30)
[2019-04-29] MEDS ORDERED: BUPIVACAINE LIPOSOME/PF 1.3% 20ML VIAL (13.3MG/ML)(EXPAREL)(C9290 PER1MG) As Ordered ONE (09:33)
[2019-04-29] MEDS ORDERED: HYDROmorphone HCL 2 MG/ML 1ML VIAL (J1170) As Ordered ONE (09:53)
[2019-04-29] MEDS ORDERED: SUGAMMADEX SODIUM 500 MG/5 ML VIAL (BRIDION) As Ordered ONE (11:05)
[2019-04-29] MEDS ORDERED: ceFAZolin 1GM INJ (J0690 PER 500MG) As Ordered ONE (14:52)
[2019-04-29] MEDS ORDERED: ALBUTEROL 6.7GM INHALER **FOR ANES. CART/OMNICELL ONLY As Ordered ONE (15:08)
[2019-04-29] MEDS ORDERED: ACETAMINOPHEN TAB 650MG DOSE (2X325MG) PO PRN (16:45)
[2019-04-29] MEDS ORDERED: MORPHINE 4 MG/ML 1ML VIAL/SYRINGE (J2270) IV PRN (16:45)
[2019-04-29] MEDS ORDERED: ONDANSETRON 4MG/2ML VIAL (J2405) IV PRN ×2 (16:45→17:15)
[2019-04-29] MEDS ORDERED: ALBUTEROL SULFATE 2.5 MG/0.5 ML INH NEB SOLN As Ordered ONE (17:04)
[2019-04-29] MEDS ORDERED: fentaNYL 100 MCG/2 ML INJECTION (J3010) IV PRN (17:15)
[2019-04-29] MEDS ORDERED: MORPHINE 10 MG/ML 1ML VIAL (J2270) IV PRN (17:15)
[2019-04-29] MEDS ORDERED: ALBUTEROL SULFATE 2.5 MG/0.5 ML INH NEB SOLN INH ONE (17:15)
[2019-04-29] MEDS ORDERED: LR 1,000 ML IV SCH (17:15)
[2019-04-29] MEDS: LR 1,000 ML IV SCH (19:00)
[2019-04-29] MEDS: ATENOLOL 25 MG TAB PO SCH (21:43)
[2019-04-29] MEDS: METOPROLOL SUCC *XL* 25MG TAB (TopROL *XL*) PO SCH (21:43)
[2019-04-29] MEDS: PRAVASTATIN 20 MG TAB PO SCH (21:43)
[2019-04-29] MEDS: ALVIMOPAN 12 MG CAPSULE (ENTEREG) PO SCH (21:43)
[2019-04-29] MEDS: FENOFIBRATE 48 MG TAB (TRICOR) PO SCH (21:43)
[2019-04-29] MEDS: OMEPRAZOLE 20 MG CAP PO SCH (21:44)
[2019-04-29] MEDS: PERCOCET 5MG/325MG TAB PO PRN (23:08)
[2019-04-30] MEDS: KETOROLAC 30 MG/ML VIAL (J1885) IV PRN (01:09)
[2019-04-30 02:00] VITALS: BP 140/71
[2019-04-30] MEDS: LR 1,000 ML IV SCH ×4 (02:00→16:55)
[2019-04-30 06:00] VITALS: BP 127/63
[2019-04-30] MEDS: HEPARIN SOD (PORCINE) 5000 UNITS/ML VIAL SC SCH ×3 (06:11→21:27)
[2019-04-30] MEDS: PERCOCET 5MG/325MG TAB PO PRN ×3 (06:12→18:50)
[2019-04-30 06:26] LABS: BASO % 0.1 % (0.0-1.0); HEMATOCRIT 36.1 % (42.0-52.0); HEMOGLOBIN 11.8 g/dl (13.5-17.5); LYMPH # 1.2 10^3/uL (1.5-5.0); LYMPH % 13.7 % (24.0-44.0); MEAN CORPUSCULAR HEMOGLOBIN 31.7 pg (27.0-33.0); MEAN CORPUSCULAR HGB CONC 32.7 g/dl (32.0-36.5); MONO % 11.3 % (0.0-5.0); NEUTROPHILS # 6.6 10^3/uL (1.5-8.5); NEUTROPHILS % 74.8 % (36.0-66.0); PLATELET COUNT, AUTOMATED 193 10^3/uL (150-450); RED BLOOD COUNT 3.72 10^6/uL (4.30-6.10); WHITE BLOOD COUNT 8.8 10^3/uL (4.0-10.0)
[2019-04-30 06:52] LABS: CALCIUM LEVEL 8.1 MG/DL (8.8-10.2); CREATININE FOR GFR 1.46 MG/DL (0.70-1.30)
[2019-04-30] MEDS: OCUVITE 1 TAB PO SCH (09:34)
[2019-04-30] MEDS: ALVIMOPAN 12 MG CAPSULE (ENTEREG) PO SCH ×2 (09:36→21:27)
[2019-04-30 10:00] VITALS: BP 142/71
--- NOTE | 2019-04-30 10:44 | ROOPDOC ---
[facility] Report Of Operation Report of Operation DATE OF PROCEDURE: 04/29/19 PREPROCEDURE DIAGNOSES: multiple colon polyps. POSTPROCEDURE DIAGNOSES: same. PROCEDURE: Robotic Assisted Laparoscopic Right Colectomy. SURGEON: Song Simeon MD HELPER TEACHER: Shirin Lopez, CLOTH BOOKER Ms. Lopez assisted me with placement of ports, intraoperative on the field m anagement of the robotic instruments with Allis at the surgeon's console as well as suctioning and retraction of bowels to assist in the surgery and in the end closure of the ports and extraction of the specimen. ANESTHESIA: General Anesthesia. ESTIMATED BLOOD LOSS: Approximately 300 mL. COMPLICATIONS: none. REMARKS: 78-year-old male patient with multiple flat large polyps located at the right side of the colon not amenable to endoscopic resection this was brought to the operating room for right colectomy. I have previously marked the distal area where the polyps are located on the transverse colon with Naila ink during his colonoscopy. PROCEDURE NOTE: multiple adhesions from previous gastric ulcer surgery, thick abundant omentum, thick right colon mesentery. DESCRIPTION OF PROCEDURE: The patient was brought to the operating room and placed supine on the operating table. Cefotetan 2 g IV and metronidazole 500 mg IV were administered prior to incision for prophylaxis. After induction of general endotracheal anesthesia, he was placed supine with both arms tucked on his sides with the pressure points padded. He received 5000 units of heparin preoperatively subcutaneously for DVT prophylaxis as well as compression boots in both his lower extremities. A Martinez catheter was inserted.Time-outs were performed using both preinduction and pre-incision safety checklists to verify correct patient, procedure, site, and additional critical information prior to beginning the procedure. A Veress needle was introduced into the abdominal cavity at the patient's left upper quadrant. Intra-abdominal placement confirmed with saline drop techni que . and pneumoperitoneum to a pressure of 15 mmHg was achieved. Under direct visualization with the laparoscope an 8 mm robotic trocar was placed at the left upper quadrant area. Patient's previous upper midline incision from a remote history of gastric ulcer surgery. I was then met with a lot of omental adhesions likewise adhesion of bowel on the upper abdominal wall. I initially lysed the adhesions laparoscopically by placing a 5 mm port laterally in the left abdominal wall and using the laparoscopic juan luis to trim down on the omental attachments to the anterior abdominal wall so that I could place the rest of my ports in its usual configuration. I used a total of 48 mm robotic ports configured obliquely from the left upper quadrant towards the right anterior superior iliac spine with a stapler port located at the midclavicular line of the left upper quadrant area. . The insertion site was inspected for injury and none was found. The entry point of the Veress needle was also inspected. There were some omental adhesions over the patient's left upper quadrant area which I removed with blunt and sharp dissection. Three additional 8 mm robotic trochars were placed under direct vision. An 8 mm trocar at the left upper quadrant area, at about 8 cm from the LUQ port towards the midclavicular line a 12 mm stapler port was placed and on the right lower quadrant about 3-4 cm medial to the anterior superior iliac spine and another 8 mm port was placed. A 5 mm port was placed at the suprapubic area for my sales service assistant to use. The patient was then positioned in 10 reverse Trendelenburg position with the patients right side up to allow for small bowel to drop clear of the operative field. The XI da Katarina robot tower was maneuvered in place over the patient's right side. The trochars were docked onto the robot arms. A 30 8 mm robotic laparoscopic port was used for the procedure. I scrubbed and perform the surgery at the surgeon's console while Dr. Barnett assisted me with bowel retraction on the field. I continued my lysis of adhesions taking down further at the omental adhesions to the rest of the upper abdominal wall as well as to the medial edge of the liver clearing the rest of the anterior abdomen up to the level of the xiphisternum. He did not really have any remnant of the falciform ligament. He has several omental adhesions to the bowel that I further lysed so I could move the omentum up towards the upper quadrant. He is quite bulky omentum taking a good amount of the upper abdomen that during my space to work with. The colon appears quite distended and was slightly difficult to manipulate and tethered upwards. Thus I started with a lateral to medial dissection starting at the terminal ileal attachments to the anterior abdominal wall proceeding towards the lateral portion of the cecum and ascending colon. After liberally dissecting laterally the ascending colon to the hepatic flexure I was then able to better manipulate the cecum and ascending colon tethered upwards and try a medial approach. The cecum was grasped and lifted up to tent the mesentery to find the course of the ileocolic artery. The course of the ileocolic artery was not readily apparent due to patient's bulky mesentery. Initial dissection was slightly more lateral towards the small bowel mesentery and so I adjusted the dissection point more medially and centrally. The patient's retroperitoneum and up towards the anticipated area of the duodenum. I found the correct plane at the base of the ileocolic artery where it joined the superior mesenteric artery. He has very thick and bulky mesentery probably containing enlarged lymph nodes. The peritoneum overlying the takeoff of the ileocolic artery was opened using electrocautery. I immediately switched to the robotic vessel sealing device as the mesentery overlying peritoneum is quite thick. This opening of the peritoneum was carried up to the base of the transverse mesocolon. With the ileocolic artery retracted by traction on the cecum, gentle dissection was used to identify its takeoff from the superior mesenteric artery. The adipose tissue around the ileocolic artery and vein were then dissected and a window created and these structures were divided using 45 mm stapler with vascular load. The divided vessels were then elevated and dissection proceeded in the retroperitoneal plane using a traction countertraction technique with gentle sweeping and visualization of the duodenum. The duodenum and its attachments were swept downward. The C loop of the duodenum were fully visualized, dissected, and preserved. Dissection then continued on the right side of the superior mesenteric artery but I did not find any definite right colic artery or vein at the area. At this point with the bulkiness of the transverse colon mesentery was hard to further dissect up towards the transverse colon. Thus he switched my attention to the top of the proximal transverse colon to dissect the hepatocolic attachments and proceeded laterally backwards towards the lateral attachments of the ascending colon and cecum along the white line of Toldt. Dissection of this area proved easy with the previous retrocolic blunt dissection. This mobilization was carried out until the posterior plane of dissection that was started from the medial approach was encountered, completing the liberation of the ascending colon and its hepatic flexure. The omentum attached to resected portions of the colon was divided and resected with the specimen. As I reached towards the area of the terminal ileum, the small bowel seems to be tethered both at the retroperitoneum and the lateral pelvic sidewall preventing much upward retraction beyond the terminal ileum. Thus I chose an area in the terminal ileum for division which I have have freed up laterally and posteriorly. I went back to the medial view of the mesentery from the transection of the ileocolic vessels and proceeded taking down the mesenteric vessels towards the chosen portion of the terminal ileum. The terminal ileum was then divided using a 45 mm stapler with a blue load. After dividing the terminal ileum there still was much attachments of the small bowel to the retroperitoneum as well as to the pelvis which was difficult to lyse with the patient's positioning. He was repositioned to a slight Trendelenburg position and the course of the terminal ileum was lysed from its lateral wall and pelvic attachments as well as from its retroperitoneal attachments until we could pull this out of the right lower quadrant into the midepigastric area without tension. The patient was then again repositioned in a slight reverse in the lumbar position this time to work on the transverse colon. At this time the right colon was sufficiently freed up that I could follow the course of the remaining right colon mesentery and this was divided with the vessel sealing device towards the chosen area of the transverse colon. The surrounding epiploic appendages and the remaining omental attachments was cleare d from the area. The transverse colon was then divided with 2 firings of the same 45 mm stapler, blue load. The remaining attachments of the right colon was easily detached at this point and the colon was temporarily placed on top of the liver to clear the area for anastomosis. The adequacy of the blood supply of site of transection was confirmed visually with ICG. The gastrocolic attachments and omental attachments of the transverse colon was freed up to allow this to drop further down and aligned with the distal ileal stump to arrange for isoperistaltic anastomosis. After the bowels were lined up. An enterotomy was made 2 cm from the edge of the terminal ileum and 6 cm from the edge of the transverse colon slightly medial to the tenia coli. A 45 mm stapler with a blue load was used to create an isoperistaltic [id number] anastomosis. The anastomotic site was inspected for injury and none was found. ICG was used to to determine adequate blood supply to both ends. I placed 2 retention sutures at the superior and inferior end of the anastomosis to align the edges of the bowel. I then used a 3-0V LOC to close the enterotomy and a running fashion starting inferiorly to make sure that the crotch of the anastomosis as well closed and then coming back down in a slight Lembert fashion after completing the anastomosis superiorly. I placed additional 3-0 silks along the closure especially in the inferior portion. The anastomosis was tested for leakage and again checked for adequate vascularization with ICG. I then scrubbed in. I created about the 3-4 cm transverse incision at the stapler port. This through the subcutaneous thinks tissue and opened up the fascia for our extraction site. I used an Mario wound protector was placed and the right colon specimen was extracted. The extraction site the anastomosis is well up towards the epigastric area. The extraction site was then closed using 1 Vicryl in a mattress fashion. I resumed laparoscopy to again checked for proper anastomosis and once satisfied the abdomen was then deflated. All ports were removed. The 12 mm stapler port was closed anteriorly with 0 Vicryl. All remaining incisions were closed with 4-0 Monocryl in subcutaneous fashion. Dermabond was used for dressing. Patient remained stable throughout the procedure In the end a bilateral transabdominal preperitoneal block was placed under ultrasound guidance on both sides. The patient tolerated the procedure well and was transferred to the postanesthesia care unit in stable condition. SONG SIMEON MD Apr 30, 2019 10:44
--- NOTE | 2019-04-30 12:52 | IPN ---
DATE OF SERVICE: 04/30/2019 HISTORY: The patient is now postoperative day #1 from a robotic-assisted laparoscopic right hemicolectomy for multiple polyps of the right colon. His surgery was completed late yesterday afternoon. He has been taking some clear liquids. He reports having had a small bowel movement, mostly loose. His urine output has been low since surgery, but he is making urine. This morning, he denies any nausea or vomiting and appears quite comfortable at rest. Vital signs show that he has been afebrile since surgery. His pulse is in the 60s and 70s and his blood pressure is excellent. His oxygen saturations on 2 liters nasal cannula oxygen have been in the mid 90s. Intake and output shows that yesterday he had 4700 mL recorded in with 500 mL recorded out. He had 450 mL of urine output recorded this morning. PHYSICAL EXAMINATION: The patient is alert and perky. Skin is warm and dry. Heart exam shows a generally regular rhythm with a few scattered extra beats. Lungs are clear to auscultation, though the breath sounds are somewhat distant. The abdomen is obese and mildly distended. He does have bowel sounds present. He has dressings on his multiple small incisions which are clean and dry. LABORATORY STUDIES: This morning show a white count of 9, hemoglobin of 12, hematocrit 36 and platelet count of 193,000. His differential count shows 75% neutrophils, 14% lymphocytes and 11% monocytes. Chemistry profile shows a sodium of 143, potassium 4.0, chloride 110, CO2 of 31, BUN of 21, creatinine 1.46 and a glucose of 100. IMPRESSION: The patient is doing very well postoperative day #1 from his right hemicolectomy. He remains on an IV at 125 ml/hour. He is taking some clear liquids and has so far had about 600 mL recorded in since surgery. His urine output is low but steady and is light orange pink color. PLAN: The patient will be continued on his current IV fluid. I suspect he may be a little dry after his prolonged surgery and his preoperative bowel preparation. He is not on any diuretics at home that would alter his fluid balance. I will advance him to a full liquid diet and if he tolerates these well we will move on to regular food. He is encouraged to be up ambulating today. I will continue the Martinez catheter for now as we monitor his urine output closely. [facility] HOSPITALLeonid
[2019-04-30 14:00] VITALS: BP 129/64
[2019-04-30 18:00] VITALS: BP 130/64
[2019-04-30] MEDS: ATENOLOL 25 MG TAB PO SCH (21:26)
[2019-04-30] MEDS: METOPROLOL SUCC *XL* 25MG TAB (TopROL *XL*) PO SCH (21:26)
[2019-04-30] MEDS: FENOFIBRATE 48 MG TAB (TRICOR) PO SCH (21:26)
[2019-04-30] MEDS: PRAVASTATIN 20 MG TAB PO SCH (21:27)
[2019-04-30] MEDS: OMEPRAZOLE 20 MG CAP PO SCH (21:27)
[2019-04-30 22:00] VITALS: BP 134/65
[2019-05-01] MEDS: PERCOCET 5MG/325MG TAB PO PRN ×2 (00:18→11:28)
[2019-05-01] MEDS: LR 1,000 ML IV SCH ×2 (01:25→02:00)
[2019-05-01 02:00] VITALS: BP 133/66
[2019-05-01] MEDS: KETOROLAC 30 MG/ML VIAL (J1885) IV PRN (04:57)
[2019-05-01] MEDS: HEPARIN SOD (PORCINE) 5000 UNITS/ML VIAL SC SCH ×3 (05:01→22:43)
[2019-05-01 05:56] LABS: BASO # 0.1 10^3/uL (0.0-0.2); BASO % 0.8 % (0.0-1.0); EOS # 0.1 10^3/uL (0.0-0.5); EOS % 1.7 % (0.0-3.0); HEMATOCRIT 34.1 % (42.0-52.0); HEMOGLOBIN 11.1 g/dl (13.5-17.5); LYMPH # 1.2 10^3/uL (1.5-5.0); LYMPH % 16.7 % (24.0-44.0); MEAN CORPUSCULAR HGB CONC 32.6 g/dl (32.0-36.5); MEAN CORPUSCULAR VOLUME 98.3 fl (80.0-96.0); MONO # 0.8 10^3/uL (0.0-0.8); MONO % 10.2 % (0.0-5.0); NEUTROPHILS # 5.2 10^3/uL (1.5-8.5); NEUTROPHILS % 70.3 % (36.0-66.0); PLATELET COUNT, AUTOMATED 181 10^3/uL (150-450); RED BLOOD COUNT 3.47 10^6/uL (4.30-6.10); WHITE BLOOD COUNT 7.4 10^3/uL (4.0-10.0)
[2019-05-01 06:00] VITALS: BP 150/71
[2019-05-01 06:15] LABS: BLOOD UREA NITROGEN 18 MG/DL (7-18); CALCIUM LEVEL 8.5 MG/DL (8.8-10.2); CARBON DIOXIDE LEVEL 28 MEQ/L (21-32); CHLORIDE LEVEL 109 MEQ/L (98-107); CREATININE FOR GFR 1.05 MG/DL (0.70-1.30); GLOMERULAR FILTRATION RATE > 60.0 (>42); GLUCOSE, FASTING 86 MG/DL (70-100); POTASSIUM SERUM 3.8 MEQ/L (3.5-5.1); SODIUM LEVEL 141 MEQ/L (136-145)
[2019-05-01] MEDS: ALVIMOPAN 12 MG CAPSULE (ENTEREG) PO SCH ×2 (08:25→22:43)
[2019-05-01] MEDS: OCUVITE 1 TAB PO SCH (08:25)
[2019-05-01 14:00] VITALS: BP 141/66
[2019-05-01 22:00] VITALS: BP 121/62
[2019-05-01] MEDS: OMEPRAZOLE 20 MG CAP PO SCH (22:42)
[2019-05-01] MEDS: PRAVASTATIN 20 MG TAB PO SCH (22:43)
[2019-05-01] MEDS: FENOFIBRATE 48 MG TAB (TRICOR) PO SCH (22:43)
[2019-05-01 22:44] VITALS: BP 121/62
[2019-05-01] MEDS: ATENOLOL 25 MG TAB PO SCH (22:44)
[2019-05-01] MEDS: METOPROLOL SUCC *XL* 25MG TAB (TopROL *XL*) PO SCH (22:44)
[2019-05-02] MEDS: PERCOCET 5MG/325MG TAB PO PRN ×2 (00:14→10:16)
[2019-05-02] MEDS: KETOROLAC 30 MG/ML VIAL (J1885) IV PRN (02:30)
[2019-05-02 06:00] VITALS: BP 142/74
[2019-05-02] MEDS: HEPARIN SOD (PORCINE) 5000 UNITS/ML VIAL SC SCH (06:00)
[2019-05-02 06:22] LABS: BASO % 0.4 % (0.0-1.0); EOS # 0.2 10^3/uL (0.0-0.5); EOS % 3.1 % (0.0-3.0); HEMOGLOBIN 11.5 g/dl (13.5-17.5); LYMPH # 1.1 10^3/uL (1.5-5.0); LYMPH % 16.2 % (24.0-44.0); MEAN CORPUSCULAR HEMOGLOBIN 32.2 pg (27.0-33.0); MEAN CORPUSCULAR HGB CONC 32.9 g/dl (32.0-36.5); MONO # 0.7 10^3/uL (0.0-0.8); MONO % 10.9 % (0.0-5.0); NEUTROPHILS # 4.7 10^3/uL (1.5-8.5); PLATELET COUNT, AUTOMATED 179 10^3/uL (150-450); RED BLOOD COUNT 3.57 10^6/uL (4.30-6.10); WHITE BLOOD COUNT 6.8 10^3/uL (4.0-10.0)
--- NOTE | 2019-05-02 06:40 | IPN ---
DATE OF VISIT: 05/01/2019 HISTORY OF PRESENT ILLNESS: The patient is now postoperative day number 2 from a right hemicolectomy for multiple polyps. He was advanced to a regular diet this morning and his Martinez catheter was removed. He reports that he has had a small bowel movement and much flatus today. He has voided since the Martinez catheter was removed. He does have some abdominal pain primarily on the left-hand side but otherwise appears quite comfortable. VITAL SIGNS: Vital signs show that he has been afebrile. His pulse is in the 60s and 70s. His blood pressure is good and his intake and output yesterday showed 4400 in with 900 out. PHYSICAL EXAMINATION: GENERAL: The patient is alert and appears fairly comfortable. His dressings are dry. HEART: Heart exam shows a regular rate and rhythm. He is not tachycardiac. He has good bilateral breath sounds. ABDOMEN: The abdomen is somewhat distended. He does have bowel sounds present. The abdomen is soft with some tenderness particularly in the left midabdomen just to the right of his trocar sites from the robotic portion of the procedure. The right side of the abdomen is significantly less tender. LABORATORY STUDIES: Studies today show a white count of 7, hemoglobin of 11, hematocrit of 34 and platelet count 181,000. Differential count shows 70% neutrophils, 17% lymphocytes and 10% monocytes. Chemistry profile shows sodium 141, potassium 3.8, chloride 109, CO2 of 28, BUN of 18, creatinine 1.0 and a glucose of 86. IMPRESSION: The patient is doing very well postoperative day number 2 from a robotic-assisted laparoscopic right hemicolectomy. He is having some flatus and has had a small bowel movement. His Martinez catheter is out and he is voiding. He is tolerating a regular diet which was started this morning. PLAN: The patient's dressings will be changed daily. I will allow him to take a shower. We will take out one of his two saline locks. I would anticipate that if all goes well he should be ready for discharge within the next 1-2 days.
[2019-05-02 06:50] LABS: BLOOD UREA NITROGEN 18 MG/DL (7-18); CALCIUM LEVEL 8.1 MG/DL (8.8-10.2); CARBON DIOXIDE LEVEL 28 MEQ/L (21-32); CHLORIDE LEVEL 107 MEQ/L (98-107); CREATININE FOR GFR 1.12 MG/DL (0.70-1.30); GLOMERULAR FILTRATION RATE > 60.0 (>42); GLUCOSE, FASTING 100 MG/DL (70-100); POTASSIUM SERUM 3.7 MEQ/L (3.5-5.1); SODIUM LEVEL 140 MEQ/L (136-145)
[2019-05-02] MEDS: ALVIMOPAN 12 MG CAPSULE (ENTEREG) PO SCH (08:38)
[2019-05-02] MEDS: OCUVITE 1 TAB PO SCH (08:38)
[2019-05-02] MEDS ORDERED: PERCOCET PO (09:57)
--- NOTE | 2019-05-02 10:03 | DS.PDOC ---
Discharge Summary General Date of Admission Apr 29, 2019 at 07:03 Date of Discharge 2018 Attending Physician: KATALINA COON MD Discharge Summary PROCEDURES PERFORMED DURING STAY: Robotic-assisted laparoscopic right colectomy. ADMITTING DIAGNOSES: 1. Multiple colon polyps. DISCHARGE DIAGNOSES: 1. Multiple colon polyps. COMPLICATIONS/CHIEF COMPLAINT: Polyps. HISTORY OF PRESENT ILLNESS: Patient has multiple colon polyps that are large and flat on the right side of the colon. I brought him to the operating room for planned laparoscopic right colectomy. HOSPITAL COURSE: Patient underwent robotic-assisted laparoscopic right colectomy for multiple colon polyps. The procedure itself went well but took time due to the amount of intraoperative adhesions that needed to be lysed secondary to prior open gastric surgery for ulcer remotely likewise the bulkiness of his omentum which takes up a lot of space that at work. Overall he did well and remained hemodynamically stable and was comfortable at the end of the procedure. He was started on clear liquids immediately which he tolerated subsequently advanced to full liquid diet on postop day 1 and regular diet by postop day 2. His been mobile ablating the hallways at postop day one started passing flatus as well as initially having loose stools which has subsequently become semisolid by the end of the admission moving his bowels about twice a day. His postoperative stay is relatively been uneventful. He had normal white count throughout this stay has been hemodynamically stable afebrile and slightly borderline low urine output. [place] very comfortable at the end of his stay requiring very minimal narcotic pain medications and he was subsequently discharged home at postop day 3. DISCHARGE MEDICATIONS: Please see below. ALLERGIES: Please see below. PHYSICAL EXAMINATION ON DISCHARGE: VITAL SIGNS: Please see below. GENERAL: Patient seen walking around the room looks comfortable mild discomfort with laying down in the bed HEENT: Mild pale palpebral conjunctiva, lips and mucosa moist NECK: Short neck, supple, no obvious jugular venous distention CARDIOVASCULAR EXAMINATION: Regular heart rate and rhythm without murmurs RESPIRATORY EXAMINATION: Clear breath sounds auscultation bilaterally without wheezing ABDOMINAL EXAMINATION: Round abdomen, still mildly distended and slightly tympanitic on percussion. Multiple laparoscopic port sites on the left side of the abdomen with diandra appearing intact, no drainage. Extraction site is on the left upper quadrant area with mild tenderness around the extraction site, no guarding. EXTREMITIES: No extremity edema SKIN: No skin rashes NEUROLOGICAL EXAMINATION: Awake, alert, oriented LABORATORY DATA: Please see below. IMAGING: None PROGNOSIS: Good ACTIVITY: Light activity until evaluated 1 week. DIET: As tolerated. Patient advised to drink lots of liquids DISCHARGE PLAN: Patient is to be discharged home. He will follow-up with me in 1 week's time to see if the diandra are ready to be removed entering the pathology DISPOSITION: . DISCHARGE INSTRUCTIONS: 1. As above 2. Patient may shower. Pat incisions until dry. May leave incisions open to air dry otherwise cover with dry gauze and change daily and as needed. ITEMS TO FOLLOWUP ON ON OUTPATIENT: 1. Final pathology result DISCHARGE CONDITION: Stable. TIME SPENT ON DISCHARGE: Greater than 30 minutes. Vital Signs/I&Os Vital Signs Date Time Temp Pulse Resp B/P (MAP) Pulse Ox O2 Delivery O2 Flow Rate FiO2 05/02/19 06:00 98.3 60 17 142/74 (96) 95 Nasal Cannula 2.0 I&O- Last 24 Hours up to 6 AM 05/02/19 06:00 Intake Total 1232.5 ml Output Total 0 ml Balance 1232.5 ml Laboratory Data Labs 24H Laboratory Tests 2 05/02/19 05:59: Immature Granulocyte % (Auto) 0.4, Neutrophils (%) (Auto) 69.0H, Lymphocytes (%) (Auto) 16.2L, Monocytes (%) (Auto) 10.9H, Eosinophils (%) (Auto) 3.1H, Basophils (%) (Auto) 0.4, Neutrophils # (Auto) 4.7, Lymphocytes # (Auto) 1.1L, Monocytes # (Auto) 0.7, Eosinophils # (Auto) 0.2, Basophils # (Auto) 0.0, Nucleated Red Blood Cells % (auto) 0.0, Anion Gap 5L, Glomerular Filtration Rate > 60.0, Calci um Level 8.1L CBC/BMP Laboratory Tests 05/02/19 05:59 Discharge Medications Scheduled Aspirin (Aspir 81) 81 Mg Tablet.dr, 81 MG PO QHS, (Reported) Atenolol (Atenolol) 25 Mg Tablet, 25 MG PO QHS, (Reported) Calcium Carbonate (Calcium) 600 Mg Tablet, 600 MG PO DAILY, (Reported) Fenofibrate Nanocrystallized (Fenofibrate) 48 Mg Tab, 48 MG PO QHS, (Reported) Levocetirizine Dihydrochloride (Levocetirizine Dihydrochloride) 5 Mg Tab, 5 MG PO QHS, (Reported) Metoprolol Succinate (Metoprolol Succinate) 25 Mg Tab, 25 MG PO QHS, (Reported) Multivit-Mins/Iron/Folic/Lycop (Centrum Men's Tablet) 1 Tab Tab, 1 TAB PO QHS, (Reported) Omeprazole (Omeprazole) 20 Mg Cap, 20 MG PO QHS, (Reported) Pravastatin Sodium (Pravastatin Sodium) 40 Mg Tab, 40 MG PO QHS, (Reported) Vit A/Vit C/Vit E/Zinc/Copper (Preservision Areds Tablet) 1 Tab Tab, 1 TAB PO DAILY, (Reported) Vitamin D (Vitamin D3) 1,000 Unit Tablet, 1,000 UNITS PO DAILY, (Reported) Scheduled PRN Naproxen (Naproxen) 375 Mg Tablet, 375 MG PO BIDP PRN for PAIN, (Reported) Oxycodone/Acetaminophen (Oxycodone-Acetaminophen 5-325) 1 Each Tablet, 1-2 TAB PO Q4HP PRN for MODERATE PAIN (PS 5-7) Allergies Coded Allergies: No Known Allergies (Unverified , 04/15/19) KATALINA COON MD May 02, 2019 10:02
== END 2019-05-02 12:24 | disposition home or self-care (01) | DRG 331 ==
LOC: M OR 07:03 → M MSPAV 17:55
PROVIDERS: ADMIT Surgery; ATTEND Surgery
PROC: 0DNU4ZZ Release Omentum, Percutaneous Endoscopic Approach (ICD-10-PCS; 2019-04-29)
PROC: 8E0W4CZ Robotic Assisted Procedure of Trunk Region, Percutaneous Endoscopic Approach (ICD-10-PCS; 2019-04-29)
PROC: 0DBF4ZZ Excision of Right Large Intestine, Percutaneous Endoscopic Approach (ICD-10-PCS; principal; 2019-04-29 08:30)
DX: K63.5 Polyp of colon (principal); K66.0 Peritoneal adhesions (postprocedural) (postinfection); F17.200 Nicotine dependence, unspecified, uncomplicated; I10 Essential (primary) hypertension; M54.5 Low back pain; G47.30 Sleep apnea, unspecified; E78.2 Mixed hyperlipidemia; K21.9 Gastro-esophageal reflux disease without esophagitis; M10.9 Gout, unspecified; J30.9 Allergic rhinitis, unspecified; Z79.82 Long term (current) use of aspirin; Z79.899 Other long term (current) drug therapy; Z85.828 Personal history of other malignant neoplasm of skin; Z79.1 Long term (current) use of non-steroidal anti-inflammatories (NSAID); Z98.49 Cataract extraction status, unspecified eye

== ENCOUNTER → 2019-05-10 | Outpatient (REF) | payer MEDICARE ==
[~2019-05-10] MED LIST changes: -ALVIMOPAN 12 MG CAPSULE (ENTEREG) PO ONE; -HEPARIN SOD (PORCINE) 5000 UNITS/ML VIAL SQ ONE; -LIDOCAINE 1% MDV 20ML VIAL SQ PRN; -LR 1,000 ML IV ONE; +PERCOCET PO; -cefoTEtan DISODIUM 2 GM in D5W MINI-BAG PLUS 50 ML IV ONE; -metroNIDAZOLE 500 MG in IV 1 EA IV ONE
[2019-05-10 13:37] LABS: APPEARANCE, URINE CLEAR (CLEAR); BACTERIA, URINE AUTO NEGATIVE (NEGATIVE); BILIRUBIN, URINE AUTO NEGATIVE (NEGATIVE); BLOOD, URINE BLOOD NEGATIVE (NEGATIVE); COLOR, URINE STRAW (YELLOW); GLUCOSE, URINE (UA) AUTO NEGATIVE (NEGATIVE); KETONE, URINE AUTO NEGATIVE (NEGATIVE); LEUKOCYTE ESTERASE, URINE AUTO TRACE (NEGATIVE); NITRITE, URINE AUTO NEGATIVE (NEGATIVE); PROTEIN, URINE AUTO NEGATIVE (NEGATIVE); RBC, URINE AUTO 0 /HPF (0-3); SPECIFIC GRAVITY URINE AUTO 1.004 (1.002-1.035); SQUAMOUS EPITHELIAL CELL UR AU 0 /HPF (0-6); UROBILINOGEN, URINE AUTO 0.2 mg/dL (0.0-2.0); WBC, URINE AUTO 2 /HPF (0-3)
== END ==
LOC: M LAB REF 12:51
PROVIDERS: ATTEND Surgery
DX: R30.0 Dysuria (principal); N39.9 Disorder of urinary system, unspecified

== ENCOUNTER → 2019-08-24 | Outpatient (CLI) | payer MEDICARE ==
[~2019-08-24] MED LIST changes: -FENO48TA13 PO; +FENO48TA7 PO; +OMEP1CAP73 PO; -OMEP20CA4 PO
[2019-08-24 09:44] LABS: HEMOGLOBIN 14.5 g/dl (13.5-17.5); MEAN CORPUSCULAR HEMOGLOBIN 30.4 pg (27.0-33.0); MEAN CORPUSCULAR HGB CONC 32.2 g/dl (32.0-36.5); MEAN CORPUSCULAR VOLUME 94.3 fl (80.0-96.0); PLATELET COUNT, AUTOMATED 294 10^3/uL (150-450); RED BLOOD COUNT 4.77 10^6/uL (4.30-6.10); WHITE BLOOD COUNT 6.5 10^3/uL (4.0-10.0)
[2019-08-24 10:11] LABS: C REACTIVE PROTEIN QUANTITATIV < 0.30 MG/DL (0.00-0.30); CHOLESTEROL LEVEL 172 MG/DL (<200); HDL CHOLESTEROL 49 MG/DL (>40); LDL CHOLESTEROL 87 MG/DL (<100); NON-HDL-C 123 MG/DL; TRIGLYCERIDES LEVEL 182 MG/DL (<150)
[2019-08-24 10:31] LABS: ERYTHROCYTE SEDIMENTATION RATE 6 mm/hr (0-20)
== END ==
LOC: M WUC 08:30
PROVIDERS: ATTEND Ophthalmology
DX: H34.239 Retinal artery branch occlusion, unspecified eye (principal)

== ENCOUNTER → 2020-08-03 | Outpatient (CLI) | payer MEDICARE ==
[~2020-08-03] MED LIST changes: -ASPI81TA85 PO; +ASPI81TA86 PO; -CALC600T5 PO; +CALC600T61 PO; +VITA1CAP25 PO
== END ==
LOC: M LABSMTC 10:35
PROVIDERS: ATTEND Anesthesiology
DX: Z01.812 Encounter for preprocedural laboratory examination (principal); Z20.822 Contact with and (suspected) exposure to COVID-19

== ENCOUNTER → 2020-08-17 | Outpatient (CLI) | payer MEDICARE | LOC: M LABSMTC 10:31 | PROVIDERS: ATTEND Anesthesiology | DX: Z01.812 Encounter for preprocedural laboratory examination (principal); Z20.822 Contact with and (suspected) exposure to COVID-19 ==

== ENCOUNTER 2020-08-22 10:44 | Day surgery (SDC) | payer MEDICARE ==
[~2020-08-22] VITALS: Ht 170.2 cm; Wt 1.8 kg
[~2020-08-22 10:44] MED LIST changes: +NS 1,000 ML IV ONE
--- OUTSIDE RECORDS SUMMARY | 2020-08-22 10:48 | CCD | Continuity of Care Document ---
Author Author Mckay CYR Organization Unknown Address [address] [place] [address] Phone [phone] Care Team Providers Care Station Mechanic Helper Name Role Phone Griselda Simeon M.D. AUTM [phone] Griselda Simeon M.D. AUTM [phone] Social History Type Date Description Comments Sex Unknown Encounters Type Date Location Provider Dx Diagnosis Office Visit 06/27/2020 8:30a [facility] DAMIR Campos I10 Essential (primary) hyperten krystal M54.5 Low back pain E78.5 Hyperlipidemia, unspecified Assessments Date Code Description Provider 06/27/2020 I10 Essential (primary) hypertension DAMIR Fitzgerald 06/27/2020 M54.5 Low back pain DAMIR Freeman 06/27/2020 E78.5 Hyperlipidemia, unspecified DAMIR Baugh 03/27/2020 I10 Essential (primary) hypertension DAMIR Fitzgerald 03/27/2020 E78.5 Hyperlipidemia, unspecified DAMIR Baugh 03/27/2020 M10.9 Gout, unspecified DAMIR Alex Plan of Treatment Future Appointment(s):* 09/26/2020 9:00 am - DAMIR Fitzgerald at [facility]
--- OUTSIDE RECORDS SUMMARY | 2020-08-22 10:48 | CCD ---
Author Author [facility] Organization [facility] Address Unknown Phone Unavailable Care Team Providers Care Dredge Captain Name Role Phone GER G ANNIKA PA Unavailable Unavailable TONTARSKI, G ANNIKA PA Unavailable Unavailable TONTARSKI, G ANNIKA PA Unavailable Unavailable TONTARSKI, G ANNIKA PA Unavailable Unavailable TONTARSKI, G ANNIKA PA Unavailable Unavailable TONTARSKI, G ANNIKA PA Unavailable Unavailable TONTARSKI, G ANNIKA PA Unavailable Unavailable TONTARSKI, G ANNIKA PA Unavailable Unavailable TONTARSKI, G ANNIKA PA Unavailable Unavailable TONTARSKI, G ANNIKA PA Unavailable Unavailable TONTARSKI, G ANNIKA PA Unavailable Unavailable TONTARSKI, G ANNIKA PA Unavailable Unavailable TONTARSKI, G ANNIKA PA Unavailable Unavailable TONTARSKI, G ANNIKA PA Unavailable Unavailable TONTARSKI, G ANNIKA PA Unavailable Unavailable TONTARSKI, G ANNIKA PA Unavailable Unavailable TONTARSKI, G ANNIKA PA Unavailable Unavailable TONTARSKI, G ANNIKA PA Unavailable Unavailable TONTARSKI, G ANNIKA PA Unavailable Unavailable TONTARSKI, G ANINKA PA Unavailable Unavailable TONTARSKI, G ANNIKA PA Unavailable Unavailable TONTARSKI, G ANNIKA PA Unavailable Unavailable TONTARSKI, G ANNIKA PA Unavailable Unavailable TONTARSKI, G ANNIKA PA Unavailable Unavailable TONTARSKI, G ANNIKA PA Unavailable Unavailable TONTARSKI, G ANNIKA PA Unavailable Unavailable TONTARSKI, G ANNIKA PA Unavailable Unavailable TONTARSKI, G ANNIKA PA Unavailable Unavailable TONTARSKI, G ANNIKA PA Unavailable Unavailable TONTARSKI, G ANNIKA PA Unavailable Unavailable TONTARSKI, G ANNIKA PA Unavailable Unavailable TONTARSKI, G ANNIKA PA Unavailable Unavailable TONTARSKI, G ANNIKA PA Unavailable Unavailable TONTARSKI, G ANNIKA PA Unavailable Unavailable TONTARSKI, G ANNIKA PA Unavailable Unavailable TONTARSKI, G ANNIKA PA Unavailable Unavailable TONTARSKI, G ANNIKA PA Unavailable Unavailable TONTARSKI, G ANNIKA PA Unavailable Unavailable TONTARSKI, G ANNIKA PA Unavailable Unavailable TONTARSKI, G ANNIKA PA Unavailable Unavailable TONTARSKI, G ANNIKA PA Unavailable Unavailable TONTARSKI, G ANNIKA PA Unavailable Unavailable TONTARSKI, G ANNIKA PA Unavailable Unavailable TONTARSKI, G ANNIKA PA Unavailable Unavailable TONTARSKI, G ANNIKA PA Unavailable Unavailable TONTARSKI, G ANNIKA PA Unavailable Unavailable TONTARSKI, G ANNIKA PA Unavailable Unavailable TONTARSKI, G ANNIKA PA Unavailable Unavailable Re-disclosure Warning The records that you are about to access may contain information from federally-assisted alcohol or drug abuse programs. If such information is present, then the following federally mandated warning applies: This information has been disclosed to you from records protected by federal confidentiality rules (42 CFR part 2). The federal rules prohibit you from making any further disclosure of this information unless further disclosure is expressly permitted by the written consent of the person to whom it pertains or as otherwise permitted by 42 CFR part 2. A general authorization for the release of medical or other information is NOT sufficient for this purpose. The Federal rules restrict any use of the information to criminally investigate or prosecute any alcohol or drug abuse patient.The records that you are about to access may contain highly sensitive health information, the redisclosure of which is protected by Article 27-F of the [place] State Public Health law. If you continue you may have access to information: Regarding HIV / AIDS; Provided by facilities licensed or operated by the [facility] Office of Mental Health; or Provided by the [facility] Office for People With Developmental Disabilities. If such information is present, then the following [facility] mandated warning applies: This information has been disclosed to you from confidential records which are protected by state law. State law prohibits you from making any further disclosure of this information without the specific written consent of the person to whom it pertains, or as otherwise permitted by law. Any unauthorized further disclosure in violation of state law may result in a fine or snf sentence or both. A general authorization for the release of medical or other information is NOT sufficient authorization for further disc losure. Family History Family Member Name Family Member Gender Family Member Status Date o f Status Description Data Source(s) Unknown Unknown Problem [facility] ([facility], ) Encounters Encounter Providers Location Date Indications Data Source(s ) [facility]: [facility]00 AM EST [facility] (Noble López MD) Medications Medication Brand Name Start Date Product Form Dose Route Admi nistrative Instructions Pharmacy Instructions Status Indications Reaction Description Data Source(s) 17.5-3.13-1.6 gram 08/03/2020 12:00:00 AM EST [facility] 354 USE DIRECTED DIRECTED BY PHYSICIAN USE DIRECTED DIRECTED BY PHYSICIAN SOLD: 08/04/2020 [facility] 5 mg 07/25/2020 12:00:00 AM EST tablet 90 TAKE ONE TABLET BY MOUTH EVERY DAY TAKE ONE TABLET BY MOUTH EVERY DAY SOLD: 07/28/2020 [facility] 40 mg 07/09/2020 12:00:00 AM EST tablet 90 TAKE ONE TABLET BY MOUTH AT BEDTIME TAKE ONE TABLET BY MOUTH AT BEDTIME SOLD: 07/11/2020 [facility] Atenolol 25 MG Oral Tablet ATENOLOL 06/28/2020 12:00:00 AM EST tablet 90 TAKE ONE TABLET BY MOUTH EVERY DAY TAKE ONE TABLET BY MOUTH EVERY DAY SOLD: 06/30/2020 [facility] 20 mg 06/28/2020 12:00:00 AM EST tablet,delayed release (DR/EC) 90 ONE BY MOUTH EVERY DAY ONE BY MOUTH EVERY DAY SOLD: 06/30/2020 [facility] 25 mg 05/18/2020 12:00:00 AM EST tablet extended release 24 hr 90 TAKE ONE TABLET BY MOUTH EVERY DAY TAKE ONE TABLET BY MOUTH EVERY DAY SOLD: 05/19/2020 [facility] Fenofibrate 48 MG Oral Tablet FENOFIBRATE NANOCRYSTALLIZED 1 07/18/2019 12:00:00 AM EST tablet 90 TAKE ONE TABLET BY MOUTH TAKE ONE TABLET BY MOUTH EVERY DAY SOLD: 05/19/2020 [facility] 40 mg 04/30/2020 12:00:00 AM EDT tablet 90 TAKE ONE TABLET BY MOUTH AT BEDTIME TAKE ONE TABLET BY MOUTH AT BEDTIME SOLD: 05/02/2020 [facility] Naproxen 375 MG Delayed Release Oral Tablet NAPROXEN 03/13 12:00:00 AM EDT tablet,delayed release (DR/EC) 60 TAKE ONE TABLET BY MOUTH TWICE A DAY NEEDED TAKE ONE TABLET BY MOUTH TWICE A DAY NEEDED SOLD: 03/31/2020 [facility] 40 mg 02/22/2020 12:00:00 AM EDT tablet 90 TAKE ONE TABLET BY MOUTH AT BEDTIME TAKE ONE TABLET BY MOUTH AT BEDTIME SOLD: 02/22/2020 [facility] Fenofibrate 48 MG Oral Tablet FENOFIBRATE NANOCRYSTALLIZED 0 02/20/2020 12:00:00 AM EDT tablet 90 TAKE ONE TABLET BY MOUTH TAKE ONE TABLET BY MOUTH EVERY DAY SOLD: 02/22/2020 [facility] 25 mg 02/17/2020 12:00:00 AM EDT tablet 90 TAKE ONE TABLET BY MOUTH EVERY DAY TAKE ONE TABLET BY MOUTH EVERY DAY SOLD: 02/18/2020 [facility] 25 mg 02/15/2020 12:00:00 AM EDT tablet extended release 24 hr 90 TAKE ONE TABLET BY MOUTH EVERY DAY TAKE ONE TABLET BY MOUTH EVERY DAY SOLD: 02/18/2020 [facility] 20 mg 02/15/2020 12:00:00 AM EDT tablet,delayed release (DR/EC) 90 ONE BY MOUTH EVERY DAY ONE BY MOUTH EVERY DAY SOLD: 02/18/2020 [facility] levocetirizine dihydrochloride 5 MG Oral Tablet LEVOCETIRIZI NE DIHYDROCHLORIDE 02/15/2020 12:00:00 AM EDT tablet 90 TAKE ONE TABLE T BY MOUTH EVERY DAY TAKE ONE TABLET BY MOUTH EVERY DAY SOLD: 02/18/2020 [facility] 5 mg 02/15/2020 12:00:00 AM EDT tablet 90 TAKE ONE TABLET BY MOUTH EVERY DAY TAKE ONE TABLET BY MOUTH EVERY DAY SOLD: 05/19/2020 [facility] 20 mg 02/15/2020 12:00:00 AM EDT tablet,delayed release (DR/EC) 90 ONE BY MOUTH EVERY DAY ONE BY MOUTH EVERY DAY SOLD: 05/19/2020 [facility] 300 mg 12/16/2019 12:00:00 AM EDT tablet 90 TAKE ONE TABLET BY MOUTH EVERY DAY TAKE ONE TABLET BY MOUTH EVERY DAY SOLD: 12/18/2019 [facility] 25 mg 12/16/2019 12:00:00 AM EDT tablet 90 TAKE ONE TABLET BY MOUTH EVERY DAY TAKE ONE TABLET BY MOUTH EVERY DAY SOLD: 12/18/2019 [facility] 25 mg 11/10/2019 12:00:00 AM EDT tablet extended release 24 hr 90 TAKE ONE TABLET BY MOUTH EVERY DAY TAKE ONE TABLET BY MOUTH EVERY DAY SOLD: 11/12/2019 [facility] levocetirizine dihydrochloride 5 MG Oral Tablet LEVOCETIRIZI NE DIHYDROCHLORIDE 11/10/2019 12:00:00 AM EDT tablet 90 TAKE ONE TABLE T BY MOUTH EVERY DAY TAKE ONE TABLET BY MOUTH EVERY DAY SOLD: 11/12/2019 [facility] 48 mg 11/10/2019 12:00:00 AM EDT tablet 90 TAKE ONE TABLET BY MOUTH EVERY DAY TAKE ONE TABLET BY MOUTH EVERY DAY SOLD: 11/12/2019 [facility] Naproxen 375 MG Delayed Release Oral Tablet NAPROXEN 11/2019 12:00:00 AM EST tablet,delayed release (DR/EC) 60 TAKE ONE TABLET BY MOUTH TWICE A DAY NEEDED TAKE ONE TABLET BY MOUTH TWICE A DAY NEEDED SOLD: 09/17/2019 [facility] 5 mg 08/17/2019 12:00:00 AM EST tablet 90 TAKE ONE TABLET BY MOUTH EVERY DAY TAKE ONE TABLET BY MOUTH EVERY DAY SOLD: 08/18/2019 [facility] 25 mg 08/17/2019 12:00:00 AM EST tablet extended release 24 hr 90 TAKE ONE TABLET BY MOUTH EVERY DAY TAKE ONE TABLET BY MOUTH EVERY DAY SOLD: 08/18/2019 [facility] 40 mg 08/17/2019 12:00:00 AM EST tablet 90 TAKE ONE TABLET BY MOUTH AT BEDTIME TAKE ONE TABLET BY MOUTH AT BEDTIME SOLD: 11/27/2019 [facility] 20 mg 08/17/2019 12:00:00 AM EST capsule,delayed release (DR/EC) 90 TAKE ONE CAPSULE BY MOUTH EVERY DAY TAKE ONE CAPSULE BY MOUTH EVERY DAY SOLD: 08/18/2019 [facility] 40 mg 08/17/2019 12:00:00 AM EST tablet 90 TAKE ONE TABLET BY MOUTH AT BEDTIME TAKE ONE TABLET BY MOUTH AT BEDTIME SOLD: 08/18/2019 [facility] 25 mg 08/17/2019 12:00:00 AM EST tablet 90 TAKE ONE TABLET BY MOUTH EVERY DAY TAKE ONE TABLET BY MOUTH EVERY DAY SOLD: 08/18/2019 [facility] Fenofibrate 48 MG Oral Tablet FENOFIBRATE NANOCRYSTALLIZED 0 08/17/2019 12:00:00 AM EST tablet 90 TAKE ONE TABLET BY MOUTH SHANNON DAY TAKE ONE TABLET BY MOUTH EVERY DAY SOLD: 08/18/2019 [facility] 20 mg 08/17/2019 12:00:00 AM EST capsule,delayed release (DR/EC) 90 TAKE ONE CAPSULE BY MOUTH EVERY DAY TAKE ONE CAPSULE BY MOUTH EVERY DAY SOLD: 11/27/2019 [facility] Naproxen 375 MG Delayed Release Oral Tablet NAPROXEN 0 11/2018 12:00:00 AM EDT tablet,delayed release (DR/EC) 60 TAKE ONE TABLET BY MOUTH TWICE A DAY NEEDED TAKE ONE TABLET BY MOUTH TWICE A DAY NEEDED SOLD: 02/25/2020 [facility] Insurance Providers Payer name Policy type / Coverage type Policy ID Covered constitution party ID Covered constitution party's relationship to harvey Policy Harvey Plan Information WELLCARE [id number] SP [id number] WELLCARE [id number] SP [id number] MEDICARE [id number] SP [id number] WELLCARE [id number] SP [id number] Today's Options Medicare Commercial [id number] Self [id number] TODAYS OPTIONS [id number] SP [id number] Today's Options Medicare Commercial [id number] Self [id number] Todays Options Medicare Adv Plan F [id number] SELF [id number] Today's Options Medicare Commercial [id number] Self [id number] Todays Options Medicare Adv Plan F [id number] SELF [id number] TODAYS OPTIONS/PUERTO RICAN O [id number] S [id number] Today's Options Medicare Commercial [id number] Self [id number] MEDICARE [id number] SP [id number] A MEDICARE [id number] SP [id number] A [id number] Results ID Date Data Source [id number] 08/17/2020 09:30:00 AM EST [facility] Name Value Range Interpretation Code Description Data Elaine rce(s) Supporting Document(s) SARS coronavirus 2 RNA Not Detected [facility] This lab was ordered by [facility] and reported by [facility]. ID Date Data Source [id number] 08/03/2020 10:00:00 AM EST [facility] Name Value Range Interpretation Code Description Data Leaine rce(s) Supporting Document(s) SARS coronavirus 2 RNA Not Detected [facility] [place] This lab was ordered by [facility] and reported by [facility]. Procedure Vital Signs ID Date Data Source UNK Name Value Range Interpretation Code Description Data Source(s) Body surface area Derived from formula 2.07 m2 2.07 m2 [facility] ([facility]) Body weight 95.880 kg 95.880 kg [facility] ([facility]) [place] body weight 148 [lb_av] 148 [lb_av] [facility] ([facility]) Body mass index (BMI) [Ratio] 33.1 kg/m2 33.1 k g/m2 [facility] ([facility]) Body weight 211.38 [lb_av] 211.38 [lb_av] [facility] Body height 67 [in_i] 67 [in_i] [facility] ([facility]) 5'7" Diastolic blood pressure 94 mm[Hg] 94 mm[Hg] [facility] ([facility]) Systolic blood pressure 172 mm[Hg] 172 mm[Hg] [facility])
--- OUTSIDE RECORDS SUMMARY | 2020-08-22 10:48 | CCD | Continuity of Care Document ---
Author Author Mckay COON MD Organization Unknown Address [address] [facility] [address] [place] [address] Phone [phone] Care Team Providers Care Service Coordinator Elderly Facility Name Role Phone Gaviota Garza AUTM Nilay Hudson AUTM [facility] - Medical Records AUTM [phone] Problems Description No Information Available Social History Type Date Description Comments Sex Unknown Tobacco Use Start: Unknown Current Cigarette Smoker 1 Pack Daily ETOH Use Occasionally consumes alcohol Recreational Drug Use Denies Drug Use Tobacco Use Start: Unknown Patient is a current smoker, smo kes every day Tobacco Use Start: Unknown 1 PPD 50+YRS Allergies, Adverse Reactions, Alerts Description No Known Drug Allergies Medications Active Medications SIG Qnty Indications Ordering Provide r Date Naproxen 375mg Tablets 1 Tab 3 X A Day as Needed 60tabs Unknown Pravastatin Sodium 40mg Tablets 1 po qd Unknown Omeprazole 20mg Tablets DR 1 by mouth once a day Unknown Fenofibrate 48mg Tablets 1 qd Unknown Aspirin 81mg Tablets DR 1 by mouth 2 X every day Unknown Mens Multivitamin Plus Tablets 1 qd Unknown Preservision Areds 2 Areds 2 Capsules 1qd Unknown Calcium 600 600mg Tablets take 1 tab by mouth once daily Unknown Metoprolol Tartrate 25mg Tablets 1 tab every day Unknown Levocetirizine Dihydrochloride 5mg Tablets 1 by mouth every day Unknown 00/00/0 000 Atenolol 25mg Tablets 1 po da joaquin Unknown Immunizations Description No Information Available Vital Signs Date Vital Result Comment 07/24/2020 1:58pm BP Systolic 172 mmHg BP Diastolic 94 mmHg Height 67 inches 5'7" Weight 211.38 lb BMI (Body Mass Index) 33.1 kg/m2 [facility] Weight 148 lb Weight 95.880 kg BSA (Body Surface Area) 2.07 m2 06/23/2019 10:24am BP Systolic 152 mmHg BP Diastolic 78 mmHg Height 67 inches 5'7" Weight 209.00 lb BMI (Body Mass Index) 32.7 kg/m2 [facility] Weight 148 lb Weight 94.802 kg BSA (Body Surface Area) 2.06 m2 Results Description No Information Available Procedures Description No Information Available Medical Devices Description No Information Available Encounters Description No Information Available Assessments Description No Information Available Plan of Treatment No Information Available Functional Status Description No Information Available Mental Status Description No Information Available Referrals Description No Information Available
[2020-08-22] MEDS ORDERED: LIDOCAINE 2% 100MG/5ML SDV (FOR ANES.) As Ordered ONE (12:41)
[2020-08-22] MEDS ORDERED: propofoL 200 MG/20 ML VIAL As Ordered ONE ×2 (12:41→13:45)
[2020-08-22] MEDS ORDERED: ePHEDrine SULFATE 25 MG/5 ML(5MG/ML) SYRINGE As Ordered ONE (13:41)
--- NOTE | 2020-08-22 13:57 | ROOR ---
Patient Name: Mckay Vaca Procedure Date: 08/22/2020 1:51 PM Date of : 1940 Age: 79 Room: [facility] Gender: Male Note Status: Finalized Procedure: Colonoscopy Indications: High risk colon cancer surveillance: Personal history of colonic polyps Providers: Song Simeon MD Referring MD: DAMIR Pugh Requesting Provider: Medicines: Monitored Anesthesia Care Complications: No immediate complications. Estimated blood loss: Minimal. Procedure: Pre-Anesthesia Assessment: - Prior to the procedure, a History and Physical was performed, and patient medications and allergies were reviewed. The patient is competent. The risks and benefits of the procedure and the sedation options and risks were discussed with the patient. All questions were answered and informed consent was obtained. Patient identification and proposed procedure were verified by the physician, the nurse and the msws in the endoscopy suite. Mental Status Examination: alert and oriented. Airway Examination: normal oropharyngeal airway and neck mobility. Respiratory Examination: clear to auscultation. CV Examination: normal. Prophylactic Antibiotics: The patient does not require prophylactic antibiotics. Prior Anticoagulants: The patient has taken no previous anticoagulant or antiplatelet agents except for aspirin. ASA Grade Assessment: III - A patient with severe systemic disease. After reviewing the risks and benefits, the patient was deemed in satisfactory condition to undergo the procedure. The anesthesia plan was to use monitored anesthesia care (MAC). Immediately prior to administration of medications, the patient was re-assessed for adequacy to receive sedatives. The heart rate, respiratory rate, oxygen saturations, blood pressure, adequacy of pulmonary ventilation, and response to care were monitored throughout the procedure. The physical status of the patient was re-assessed after the procedure. The Colonoscope was introduced through the anus and advanced to the ileocolonic anastomosis. The colonoscopy was somewhat difficult due to unable to keep air/insufflate fully at the sigmoid colon. The quality of the bowel preparation was good. Findings: The perianal and digital rectal examinations were normal. There was evidence of a prior [id number] ileo-colonic anastomosis in the transverse colon. This was patent and was characterized by healthy appearing mucosa. A 5 mm polyp was found in the anastomosis. The polyp was flat. The polyp was removed with a cold snare. Resection and retrieval were complete. Estimated blood loss was minimal. Two sessile polyps were found in the sigmoid colon. The polyps were 2 to 8 mm in size. These polyps were removed with a cold snare. Resection and retrieval were complete. Estimated blood loss was minimal. The retroflexed view of the distal rectum and anal verge was normal and showed no anal or rectal abnormalities. Impression: - Patent [id number] ileo-colonic anastomosis, characterized by healthy appearing mucosa. - One 5 mm polyp at the anastomosis, removed with a cold snare. Resected and retrieved. - Two 2 to 8 mm polyps in the sigmoid colon, removed with a cold snare. Resected and retrieved. - The distal rectum and anal verge are normal on retroflexion view. Recommendation: - Discharge patient to home (ambulatory). - Telephone my office for pathology results in 1 week. - Repeat colonoscopy in 3 years for surveillance. Procedure Code(s): --- Professional --- 46449, Colonoscopy, flexible; with removal of tumor(s), polyp(s), or other lesion(s) by snare technique Diagnosis Code(s): --- Professional --- K63.5, Polyp of colon Z86.010, Personal history of colonic polyps Z98.0, Intestinal bypass and anastomosis status CPT copyright 2019 [employer]. All rights reserved. The codes documented in this report are preliminary and upon marketing support specialist review may be revised to meet current compliance requirements. Song Simeon MD Song Simeon MD 08/22/2020 1:57:12 PM Electronically signed by Song Simeon MD Number of Addenda: 0 Note Initiated On: 08/22/2020 1:51 PM Estimated Blood Loss: Estimated blood loss was minimal.
[2020-08-22 14:25] VITALS: BP 175/78
== END 2020-08-22 14:50 | disposition home or self-care (01) ==
LOC: M OPP 10:44
PROVIDERS: ATTEND Surgery
DX: Z12.11 Encounter for screening for malignant neoplasm of colon (principal); Z86.010 Personal history of colon polyps; K63.5 Polyp of colon; Z98.0 Intestinal bypass and anastomosis status; I10 Essential (primary) hypertension; E78.5 Hyperlipidemia, unspecified; M19.90 Unspecified osteoarthritis, unspecified site; Z86.73 Personal history of transient ischemic attack (TIA), and cerebral infarction without residual deficits; Z87.891 Personal history of nicotine dependence; Z79.82 Long term (current) use of aspirin; Z79.899 Other long term (current) drug therapy

== ENCOUNTER → 2022-09-15 | Outpatient (CLI) | payer MEDICARE ==
[~2022-09-15] MED LIST changes: -FENO48TA7 PO; +FENO48TA8 PO; -NS 1,000 ML IV ONE
[2022-09-15 09:56] LABS: HEMOGLOBIN 12.2 g/dl (13.5-17.5); MEAN CORPUSCULAR HEMOGLOBIN 29.3 pg (27.0-33.0); MEAN CORPUSCULAR HGB CONC 31.3 g/dl (32.0-36.5); MEAN CORPUSCULAR VOLUME 93.8 fl (80.0-96.0); PLATELET COUNT, AUTOMATED 280 10^3/uL (150-450); RED BLOOD COUNT 4.16 10^6/uL (4.30-6.10); WHITE BLOOD COUNT 6.2 10^3/uL (4.0-10.0)
[2022-09-15 10:26] LABS: ALBUMIN 3.7 G/DL (3.2-5.2); BILIRUBIN,TOTAL 0.5 MG/DL (0.3-1.2); CALCIUM LEVEL 9.2 MG/DL (8.3-10.6); CHOLESTEROL RISK RATIO 2.74 (<5); CREATININE FOR GFR 1.43 MG/DL (0.70-1.30); GLOMERULAR FILTRATION RATE 50.8 (>42); HDL CHOLESTEROL 48.4 MG/DL (>40); LDL CHOLESTEROL 62.8 MG/DL (<100); POTASSIUM SERUM 4.9 MMOL/L (3.5-5.1); TOTAL PROTEIN 6.7 G/DL (5.7-8.2)
[2022-09-15 10:27] LABS: TOTAL 25(OH) VITAMIN D 29.6 NG/ML (20.0-100.0)
[2022-09-16 23:07] LABS: PSA TOTAL 0.6 ng/mL (0.0-4.0)
== END ==
LOC: M WUC 08:15
PROVIDERS: ATTEND Physician Assistant
DX: E78.5 Hyperlipidemia, unspecified (principal); I10 Essential (primary) hypertension; E55.9 Vitamin D deficiency, unspecified; Z12.5 Encounter for screening for malignant neoplasm of prostate; Z79.899 Other long term (current) drug therapy; R97.20 Elevated prostate specific antigen [PSA]

== ENCOUNTER 2023-10-28 08:14 | Day surgery (SDC) | payer MEDICARE ==
[~2023-10-28] VITALS: Ht 170.2 cm; Wt 90.7 kg
[~2023-10-28 08:14] MED LIST changes: +ALBU8.5H; +FISH1CAP24 PO; +LOSA50TA28 PO; +NS 1,000 ML IV ONE; +PRES10CA2 PO; +propofoL 200 MG/20 ML VIAL As Ordered ONE
[2023-10-28] MEDS ORDERED: LIDOCAINE 2% INJ 100 MG/5 ML SYRINGE As Ordered ONE (08:53)
[2023-10-28] MEDS ORDERED: ePHEDrine INJ 50MG/ML 1ML VIAL As Ordered ONE (09:52)
[2023-10-28 09:57] VITALS: TEMP 97.2
[2023-10-28 10:22] VITALS: BP 152/69; O2SAT 97
== END 2023-10-28 10:24 | disposition home or self-care (01) ==
LOC: M OPP 08:14
PROVIDERS: ATTEND Surgery
DX: Z86.010 Personal history of colon polyps (principal); Z80.0 Family history of malignant neoplasm of digestive organs; K64.9 Unspecified hemorrhoids; D12.6 Benign neoplasm of colon, unspecified; K57.30 Diverticulosis of large intestine without perforation or abscess without bleeding; F17.200 Nicotine dependence, unspecified, uncomplicated; Z90.49 Acquired absence of other specified parts of digestive tract; Z86.73 Personal history of transient ischemic attack (TIA), and cerebral infarction without residual deficits; Z79.02 Long term (current) use of antithrombotics/antiplatelets; Z79.52 Long term (current) use of systemic steroids

== ENCOUNTER → 2024-01-07 | Outpatient (REF) | payer MEDICARE, MEDICAID ==
[~2024-01-07] MED LIST changes: -NS 1,000 ML IV ONE; -propofoL 200 MG/20 ML VIAL As Ordered ONE
[2024-01-07 19:07] LABS: PERCENT SATURATION 7.9 % (19.7-50.0)
== END ==
LOC: M LAB REF 17:35
PROVIDERS: ATTEND Internal Medicine Nephrology
DX: D50.9 Iron deficiency anemia, unspecified (principal)

== ENCOUNTER → 2024-02-08 | Outpatient (CLI) | payer MEDICARE, MEDICAID | LOC: M RAD 08:43 | PROVIDERS: ATTEND Internal Medicine Nephrology | DX: N18.30 Chronic kidney disease, stage 3 unspecified (principal); I70.1 Atherosclerosis of renal artery ==

== ENCOUNTER → 2024-06-27 | Outpatient (REF) | payer MEDICARE, MEDICAID ==
[2024-06-27 18:48] LABS: PERCENT SATURATION 29.6 % (19.7-50.0)
== END ==
LOC: M LAB REF 17:25
PROVIDERS: ATTEND Internal Medicine Nephrology
DX: D50.9 Iron deficiency anemia, unspecified (principal)